=== PATIENT | female | born 1975 | race Caucasian/White ===

== ENCOUNTER 2018-09-06 12:12 | Outpatient (REF) | payer SELFPAY ==
[2018-09-06 18:39] LABS: TSH (W/Ref FT4) 1.59 uIU/mL (0.358-3.74)
== END 2018-09-06 12:32 ==
LOC: NCHCN 12:12
PROVIDERS: PCP Nurse Practitioner; Visit Provider Nurse Practitioner
DX: E03.9 Hypothyroidism, unspecified (principal)
CPT/HCPCS: 84443

== ENCOUNTER 2018-11-23 12:58 | Emergency (ER) | payer OTHER, SELFPAY ==
--- NOTE | 2018-11-23 13:08 | NUR.NOTE ---
pt states that at approximately 0900 pt leaned against a porch and and gor a large: splinter over her left hip. PT went to see DR griffin who attempted to remove the splinter but was unable. she recommended PT get a gucal consult for removal. PT was told she would have to wait more than a week for consult so PT came to ER to have it removed now as she was concerned for infection if she had to wait a week
[2018-11-23 13:11] VITALS: BP 130/76; PULSE 82; RESP 16; TEMP 36.6; O2SAT 96
[2018-11-23 14:03] VITALS: BP 130/76; PULSE 82; RESP 16; TEMP 36.6; O2SAT 96
--- NOTE | 2018-11-23 14:12 | ED.GENADUL_ITS ---
Discharge Plan Disposition Patient Disposition: HOME Discharge Details Chief Complaint: Laceration Clinical Impression: Puncture wound Primary Care Provider: Yuki Servin ED Provider: Santiago Goodwin Home Meds and New Rx's Prescriptions: No Action albuterol sulfate [ProAir HFA] 8.5 GM HFA aerosol inhaler 1 - 2 puff Inhalation Q4H PRN RF: 0 ascorbic acid (vitamin C) 1,000 MG tablet,chewable 1,000 mg PO DAILY RF: 0 cholecalciferol (vitamin D3) 1,000 UNIT capsule 1,000 unit PO DAILY RF: 0 levothyroxine 100 MCG tablet 100 mcg PO DAILY RF: 0 esomeprazole magnesium [Nexium] 40 MG capsule,delayed release(DR/EC) 40 mg PO DAILY RF: 0 epinephrine [EpiPen 2-Dayo] 0.3 MG/0.3 ML auto-injector 0.3 mg IJ PRN Qty: 1 RF: 1 Medical Marijuania PRNRF: 0 ferrous sulfate 325 MG tablet 325 mg PO DAILY RF: 0 hydrocodone-acetaminophen 1 TAB tablet 1 tab PO Q6H PRN PRNQty: 10 RF: 0 Discharge Instructions Instructions: Puncture Wound (ED) Additional Instructions: 1. Drink plenty of fluids. 2. Continue all medications as prescribed. 3. Acetaminophen 1000mg every 4 hours (up to 5 time a day) and/or ibuprofen 600mg every 6 hours as needed for fever or pain. 4. Sutures out in 7-10 days. Frequent warm water soaks. Return for worsening redness, discharge, swelling. Return to the Emergency Department (ED) if your condition worsens, does not improve as expected, or for ANY other concerns. Specifically, return if you have new or uncontrolled pain, worsening fever, difficulty breathing, vomiting, or are unable to drink fluids. Medical Decision Making 43-year-old who presents with a possible foreign body in her left lateral gluteal region. Referred here after previous attempt at incision and drainage. right denies other significant injury. Exam significant for a small punctate incision in the left lateral gluteal region with a small palpable nodule immediately adjacent posteriorly. Foreign body not visible by bedside ultrasound. 3 cm incision made with scalpel after using lidocaine with epi for local anesthesia. Unable to visualize or palpate any foreign body by exploration with a forceps. Wound had been cleaned prior to incision and therefore was amenable for primary closure and wound edges were approximated with 3-0 nylon suture. Discharged with plan for frequent warm compresses, sutures out in 7-10 days, and return for any evidence of worsening infective process or persistent foreign body. Pt evaluated immediately prior to discharge with improved symptoms, normal vital signs, and tolerating PO. The patient feels appropriate for discharge home. Discussed clinical/diagnostic findings. Discharged with a clear plan for outpatient follow up. Given usual and customary return instructions prior to discharge. Medical Records Medical records reviewed: Yes I reviewed the patient's medical records. HPI 43-year-old with a history of chronic back pain, hypothyroidism, asthma, GERD, and macrocytic anemia. Presents for evaluation of a possible foreign body to her left gluteal region. Nika was at work when she inadvertently grazed an object with a sensation of a splinter into her left gluteal region. She was evaluated prior to presentation here by her PCP who attempted to remove the foreign body without success. She has a sensation of persistent local discomfort and a small lump immediately adjacent to the previous incision site. She denies other significant injury. General Date/Time Provider Initiated Documentation: 11/23/18 13:17 . Related Data Home Medications Medication Instructions Recorded Confirmed albuterol sulfate [Proair Hfa] 1 - 2 puff INHALATION Q4H PRN 10/15/13 11/23/18 inhaler ascorbic acid (vitamin C) 1,000 mg PO DAILY tab.chew 10/15/13 11/23/18 cholecalciferol (vitamin D3) 1,000 unit PO DAILY 10/15/13 11/23/18 epinephrine [Epipen 2-Dayo] 0.3 mg IJ PRN #1 unit 04/24/14 11/23/18 esomeprazole magnesium [Nexium] 40 mg PO DAILY 04/24/14 11/23/18 Medical Marijuania PRN 04/13/16 06/14/18 levothyroxine 100 mcg PO DAILY tab-cap 09/22/16 11/23/18 ferrous sulfate 325 mg PO DAILY 09/30/16 11/23/18 hydrocodone-acetaminophen 1 tab PO Q6H PRN PRN #10 tab 10/05/16 11/23/18 Previous Rx's Medication Instructions Recorded epinephrine [Epipen 2-Dayo] 0.3 mg IJ PRN #1 unit 04/24/14 hydrocodone-acetaminophen 1 tab PO Q6H PRN PRN #10 tab 10/05/16 Allergies Allergy/AdvReac Type Severity Reaction Status Date / Time aspirin Allergy Severe Anaphylaxsi Unverified 11/23/18 13:13 s venom-honey bee Allergy Anaphylaxsi Unverified 11/23/18 13:13 s oxycodone AdvReac Severe Nausea & Unverified 11/23/18 13:13 vomiting General Stated Complaint: Laceration GITA: 3 Review of Systems Review of Systems All systems reviewed & are unremarkable except as noted in HPI and below Integumentary/Breasts Comments: Foreign body sensation to left gluteal region laterally. [facility] Medical History Chronic pain (Chronic) Hypothyroidism (Chronic) Chronic low back pain (Acute) Asthma GERD (gastroesophageal reflux disease) CTS (carpal tunnel syndrome) (Acute) Iron deficiency anemia (Acute) Irregular menses Microcytic anemia Sacroiliac joint dysfunction Surgical History EGD - IV Sedation EGD - MAC (04/13/16) Ligation of fallopian tube (~1999) Tonsillectomy and adenoidectomy (~1986) Social History Smoking/Tobacco Use Status: Former Tobacco Use Alcohol Intake: current Alcohol Intake frequency: holidays/special occasions only Drug use: Rarely Substance use type: other Details: Medical Marijuana Household members: spouse Number of Children: 3 number of grandchildren: 1 current occupation: [employer], [employer] What type of physical activity do you participate in: walking and regular exercise Duration: 15-30 minutes/day Frequency: 5-6 times per week Seatbelt use: always Drive intox or ride w/intox 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 Neuro General: alert, awake, gait normal, tone normal and moves all extremities Psych Appearance: grossly normal Mental Status: mental status grossly normal Affect: normal affect Course Vital Signs Temperature 97.9 F 11/23/18 13:11 Pulse 82 11/23/18 13:11 Respiratory Rate 16 11/23/18 13:11 Blood Pressure 130/76 11/23/18 13:11 Pulse Oximetry 96 11/23/18 13:11 Temperature 97.9 F 11/23/18 13:11 Temperature Source Skin 11/23/18 13:11 Pulse 82 11/23/18 13:11 Respiratory Rate 16 11/23/18 13:11 Respiratory Effort 11/23/18 13:14 Blood Pressure 130/76 11/23/18 13:11 Blood Pressure Position Supine 11/23/18 13:11 Pulse Oximetry 96 11/23/18 13:11 Oxygen Delivery Method Room Air 11/23/18 13:11 Oxygen Flow Rate 0 11/23/18 13:11 Pain Level 3 11/23/18 13:11 Procedures Foreign Body Removal Time Out Performed: yes Site: left Description of foreign body: other (Subjective wooden splinter) Sedation/Analgesia: none Technique: other (Skin incised with a scalpel and explored with a forceps) Confirmed by:: other (Foreign body not visualized or appreciated by palpation.) Complications: none (Discussed primary versus secondary closure. Wound edges approximated with 2 3-0 nylon simple interrupted sutures) Post-procedure exam: awake, alert and normal BP
== END 2018-11-23 14:10 | disposition home or self-care (01) ==
PROVIDERS: Emergency Provider Emergency Medicine; PCP Nurse Practitioner
DX: S70.252A Superficial foreign body, left hip, initial encounter (principal); X58.XXXA Exposure to other specified factors, initial encounter
CPT/HCPCS: 10120

== ENCOUNTER 2018-11-30 09:23 | Emergency (ER) | payer OTHER, SELFPAY ==
[2018-11-30 09:26] VITALS: BP 124/52; PULSE 78; RESP 14; TEMP 36.5; O2SAT 99
--- NOTE | 2018-11-30 09:26 | W.ED.GENAD ---
Discharge Plan Disposition Patient Disposition: HOME Condition: Stable Discharge Details Clinical Impression: Visit for suture removal Primary Care Provider: Yuki Servin ED Provider: Phil Malcolm Home Meds and New Rx's Prescriptions: No Action albuterol sulfate [ProAir HFA] 8.5 GM HFA aerosol inhaler 1 - 2 puff Inhalation Q4H PRN RF: 0 ascorbic acid (vitamin C) 1,000 MG tablet,chewable 1,000 mg PO DAILY RF: 0 cholecalciferol (vitamin D3) 1,000 UNIT capsule 1,000 unit PO DAILY RF: 0 levothyroxine 100 MCG tablet 100 mcg PO DAILY RF: 0 esomeprazole magnesium [Nexium] 40 MG capsule,delayed release(DR/EC) 40 mg PO DAILY RF: 0 epinephrine [EpiPen 2-Dayo] 0.3 MG/0.3 ML auto-injector 0.3 mg IJ PRN Qty: 1 RF: 1 Medical Marijuania PRNRF: 0 ferrous sulfate 325 MG tablet 325 mg PO DAILY RF: 0 hydrocodone-acetaminophen 1 TAB tablet 1 tab PO Q6H PRN PRNQty: 10 RF: 0 Discharge Instructions Instructions: Stitches Removal (ED) Medical Decision Making Had 2 sutures placed 7 days ago on buttocks, here for removal. No significant warmth, erythema or discharge, no evidence of infection and is well healed. nursing will remove sutures, return precautions given Differential Diagnosis suture removal HPI General Mode of arrival: ambulatory. Date/Time Provider Initiated Documentation: 11/30/18 09:25. Limitations to Documentation: no limitations. Information obtained by: patient. History of Present Illness 43 year old F presents to the emergency department with the chief complaint of suture removal, and is localized to the buttocks. Patient reports no radiation. Patient started experiencing this day(s) (7) and it has been constant. No relieving factors improve symptom(s), No exacerbating factors reported . Related Data Home Medications Medication Instructions Recorded Confirmed albuterol sulfate [Proair Hfa] 1 - 2 puff INHALATION Q4H PRN 10/15/13 11/23/18 inhaler ascorbic acid (vitamin C) 1,000 mg PO DAILY tab.chew 10/15/13 11/23/18 cholecalciferol (vitamin D3) 1,000 unit PO DAILY 10/15/13 11/23/18 epinephrine [Epipen 2-Dayo] 0.3 mg IJ PRN #1 unit 04/24/14 11/23/18 esomeprazole magnesium [Nexium] 40 mg PO DAILY 04/24/14 11/23/18 Medical Marijuania PRN 04/13/16 06/14/18 levothyroxine 100 mcg PO DAILY tab-cap 09/22/16 11/23/18 ferrous sulfate 325 mg PO DAILY 09/30/16 11/23/18 hydrocodone-acetaminophen 1 tab PO Q6H PRN PRN #10 tab 10/05/16 11/23/18 Previous Rx's Medication Instructions Recorded epinephrine [Epipen 2-Dayo] 0.3 mg IJ PRN #1 unit 04/24/14 hydrocodone-acetaminophen 1 tab PO Q6H PRN PRN #10 tab 10/05/16 Allergies Allergy/AdvReac Type Severity Reaction Status Date / Time aspirin Allergy Severe Anaphylaxsi Unverified 11/23/18 13:13 s venom-honey bee Allergy Anaphylaxsi Unverified 11/23/18 13:13 s oxycodone AdvReac Severe Nausea & Unverified 11/23/18 13:13 vomiting General GITA: 3 Review of Systems Review of Systems All systems reviewed & are unremarkable except as noted in HPI and below Constitutional Denies chills and Denies fever(s) Eyes Denies loss of vision ENT Denies change in voice Cardiovascular Denies chest pain and Denies dyspnea Respiratory Denies cough and Denies dyspnea Gastrointestinal Denies abdominal pain, Denies nausea and Denies vomiting Neurologic Denies loss of vision [facility] Medical History Chronic pain (Chronic) Hypothyroidism (Chronic) Chronic low back pain (Acute) Asthma GERD (gastroesophageal reflux disease) CTS (carpal tunnel syndrome) (Acute) Iron deficiency anemia (Acute) Irregular menses Microcytic anemia Sacroiliac joint dysfunction Surgical History EGD - IV Sedation EGD - MAC (04/13/16) Ligation of fallopian tube (~1999) Tonsillectomy and adenoidectomy (~1986) Social History Smoking/Tobacco Use Status: Former Tobacco Use Alcohol Intake: current Alcohol Intake frequency: holidays/special occasions only Drug use: Rarely Substance use type: other Details: Medical Marijuana Household members: spouse Number of Children: 3 number of grandchildren: 1 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[employer], [employer] What type of physical activity do you participate in: walking and regular exercise Duration: 15-30 minutes/day Frequency: 5-6 times per week Seatbelt use: always Drive intox or ride w/intox 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: No Working smoke detector in home: Yes Fire extinguisher in home: Yes Carbon monox detector in home: Yes Do you feel safe at home: Yes Do you feel safe in your relationship?: Yes Exam Const General: no acute distress Orientation: alert HENMT Head: normal to inspection Ears: external ears normal General nose exam: external nose normal Mouth: moist mucous membranes Eyes General: appearance normal, both eyes and all related structures Neck Neck: normal visual inspection Resp Effort & Inspection: normal respiratory effort and able to speak in complete sentences Cardio Rate: regular rate Skin General skin exam: turgor normal Neuro General: alert and oriented x3 Extrem General: normal to inspection Psych Mental Status: mental status grossly normal
--- NOTE | 2018-11-30 09:31 | ED.GENADUL_ITS ---
Discharge Plan Disposition Patient Disposition: HOME Condition: Stable Discharge Details Clinical Impression: Visit for suture removal Primary Care Provider: Yuki Servin ED Provider: Phil Malcolm Home Meds and New Rx's Prescriptions: No Action albuterol sulfate [ProAir HFA] 8.5 GM HFA aerosol inhaler 1 - 2 puff Inhalation Q4H PRN RF: 0 ascorbic acid (vitamin C) 1,000 MG tablet,chewable 1,000 mg PO DAILY RF: 0 cholecalciferol (vitamin D3) 1,000 UNIT capsule 1,000 unit PO DAILY RF: 0 levothyroxine 100 MCG tablet 100 mcg PO DAILY RF: 0 esomeprazole magnesium [Nexium] 40 MG capsule,delayed release(DR/EC) 40 mg PO DAILY RF: 0 epinephrine [EpiPen 2-Dayo] 0.3 MG/0.3 ML auto-injector 0.3 mg IJ PRN Qty: 1 RF: 1 Medical Marijuania PRNRF: 0 ferrous sulfate 325 MG tablet 325 mg PO DAILY RF: 0 hydrocodone-acetaminophen 1 TAB tablet 1 tab PO Q6H PRN PRNQty: 10 RF: 0 Discharge Instructions Instructions: Stitches Removal (ED) Medical Decision Making Had 2 sutures placed 7 days ago on buttocks, here for removal. No significant warmth, erythema or discharge, no evidence of infection and is well healed. nursing will remove sutures, return precautions given Differential Diagnosis suture removal HPI General Mode of arrival: ambulatory . Date/Time Provider Initiated Documentation: 11/30/18 09:25 . Limitations to Documentation: no limitations . Information obtained by: patient . History of Present Illness 43 year old F presents to the emergency department with the chief complaint of suture removal, and is localized to the buttocks. Patient reports no radiation. Patient started experiencing this day(s) (7) and it has been constant. No relieving factors improve symptom(s), No exacerbating factors reported . Related Data Home Medications Medication Instructions Recorded Confirmed albuterol sulfate [Proair Hfa] 1 - 2 puff INHALATION Q4H PRN 10/15/13 11/23/18 inhaler ascorbic acid (vitamin C) 1,000 mg PO DAILY tab.chew 10/15/13 11/23/18 cholecalciferol (vitamin D3) 1,000 unit PO DAILY 10/15/13 11/23/18 epinephrine [Epipen 2-Dayo] 0.3 mg IJ PRN #1 unit 04/24/14 11/23/18 esomeprazole magnesium [Nexium] 40 mg PO DAILY 04/24/14 11/23/18 Medical Marijuania PRN 04/13/16 06/14/18 levothyroxine 100 mcg PO DAILY tab-cap 09/22/16 11/23/18 ferrous sulfate 325 mg PO DAILY 09/30/16 11/23/18 hydrocodone-acetaminophen 1 tab PO Q6H PRN PRN #10 tab 10/05/16 11/23/18 Previous Rx's Medication Instructions Recorded epinephrine [Epipen 2-Dayo] 0.3 mg IJ PRN #1 unit 04/24/14 hydrocodone-acetaminophen 1 tab PO Q6H PRN PRN #10 tab 10/05/16 Allergies Allergy/AdvReac Type Severity Reaction Status Date / Time aspirin Allergy Severe Anaphylaxsi Unverified 11/23/18 13:13 s venom-honey bee Allergy Anaphylaxsi Unverified 11/23/18 13:13 s oxycodone AdvReac Severe Nausea & Unverified 11/23/18 13:13 vomiting General GITA: 3 Review of Systems Review of Systems All systems reviewed & are unremarkable except as noted in HPI and below Constitutional Denies chills and Denies fever(s) Eyes Denies loss of vision ENT Denies change in voice Cardiovascular Denies chest pain and Denies dyspnea Respiratory Denies cough and Denies dyspnea Gastrointestinal Denies abdominal pain, Denies nausea and Denies vomiting Neurologic Denies loss of vision [facility] Medical History Chronic pain (Chronic) Hypothyroidism (Chronic) Chronic low back pain (Acute) Asthma GERD (gastroesophageal reflux disease) CTS (carpal tunnel syndrome) (Acute) Iron deficiency anemia (Acute) Irregular menses Microcytic anemia Sacroiliac joint dysfunction Surgical History EGD - IV Sedation EGD - MAC (04/13/16) Ligation of fallopian tube (~1999) Tonsillectomy and adenoidectomy (~1986) Social History Smoking/Tobacco Use Status: Former Tobacco Use Alcohol Intake: current Alcohol Intake frequency: holidays/special occasions only Drug use: Rarely Substance use type: other Details: Medical Marijuana Household members: spouse Number of Children: 3 number of grandchildren: 1 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, [employer] What type of physical activity do you participate in: walking and regular exercise Duration: 15-30 minutes/day Frequency: 5-6 times per week Seatbelt use: always Drive intox or ride w/intox 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: No Working smoke detector in home: Yes Fire extinguisher in home: Yes Carbon monox detector in home: Yes Do you feel safe at home: Yes Do you feel safe in your relationship?: Yes Exam Const General: no acute distress Orientation: alert HENMT Head: normal to inspection Ears: external ears normal General nose exam: external nose normal Mouth: moist mucous membranes Eyes General: appearance normal, both eyes and all related structures Neck Neck: normal visual inspection Resp Effort & Inspection: normal respiratory effort and able to speak in complete sentences Cardio Rate: regular rate Skin General skin exam: turgor normal Neuro General: alert and oriented x3 Extrem General: normal to inspection Psych Mental Status: mental status grossly normal
== END 2018-11-30 09:35 | disposition home or self-care (01) ==
LOC: ER 09:49
PROVIDERS: Emergency Provider Emergency Medicine; PCP Nurse Practitioner
DX: S31.812D Laceration with foreign body of right buttock, subsequent encounter (principal); X58.XXXD Exposure to other specified factors, subsequent encounter; Z48.02 Encounter for removal of sutures

== ENCOUNTER 2019-03-04 10:29 | Outpatient (REF) | payer OTHER, SELFPAY ==
--- NOTE | 2019-03-04 09:50 | PAPFT_PTH ---
PATIENT: Nika Villarreal LOC: [facility] U#:[id number] AGE/SX: 43/F ROOM: RE03/04/[address]: Viviana Osuna : 1975 BED: DIS: 03/04/2019 SPEC #: [id number] RECD: 03/04/19 11:24 STATUS: MAIKOL REAleksandr #: [id number] CHRISTOPHER: 03/04/19 09:[address]: Viviana Osuna DEPT: [facility] Cytology RECD BY: Fozia Sevilla ENTERED: 03/04/19 11:25 SP TYPE: PAPFT OTHR DR: Yuki Servin Tissues: 1 - CX/ENDOCX FOR PAP SMEARS Procedures: PAP THIN PREP/UVM Screening HPV DNA PROBE Comments: [id number]
== END 2019-03-04 10:49 ==
LOC: LBN 10:29
PROVIDERS: PCP Nurse Practitioner; Visit Provider Obstetrics & Gynecology Gynecology
DX: Z12.4 Encounter for screening for malignant neoplasm of cervix (principal); Z11.51 Encounter for screening for human papillomavirus (HPV)
CPT/HCPCS: 88142; 87624

== ENCOUNTER 2020-04-27 12:28 | Outpatient (REF) | payer OTHER, SELFPAY ==
[2020-04-27 18:52] LABS: HCT 37.6 % (36.0-46.0); HGB 12.2 g/dL (11.2-15.7); MCH 29.5 pg (27.0-33.0); MCHC 32.4 % (32.0-36.0); MPV 11.3 fL (8.0-11.0); Platelet Count 288 10^3/uL (130-400); RBC 4.13 10^6/uL (3.93-5.22); RDW-SD 43.5 fL; WBC 6.56 10^3/uL (4.4-10.8)
[2020-04-27 20:01] LABS: ALT 37 U/L (14-59); AST 29 U/L (15-37); Albumin 3.6 g/dL (3.4-5.0); Alkaline Phosphatase 56 U/L (46-116); Anion Gap 11.1 mmol/L (3-11); BUN 11 mg/dL (7-18); Bilirubin, Total 0.4 mg/dL (0.2-1.0); CO2 25.9 mmol/L (21.0-32.0); CREATININE 0.73 mg/dL (0.55-1.02); Calcium 8.9 mg/dL (8.5-10.1); Chloride 104 mmol/L (98-107); Glucose 100 mg/dL (74-106); Sodium 141 mmol/L (136-145); TSH (W/Ref FT4) 0.75 uIU/mL (0.36-3.74); Total Protein 6.6 g/dL (6.4-8.2)
== END 2020-04-27 12:48 ==
LOC: NCHCN 12:28
PROVIDERS: PCP Nurse Practitioner; Visit Provider Nurse Practitioner
DX: E03.9 Hypothyroidism, unspecified (principal); E66.9 Obesity, unspecified; M54.5 Low back pain; Z86.2 Personal history of diseases of the blood and blood-forming organs and certain disorders involving the immune mechanism
CPT/HCPCS: 80053; 85027; 84443

== ENCOUNTER 2020-11-02 10:31 | Outpatient (CLI) | payer OTHER, SELFPAY ==
--- NOTE | 2020-11-02 09:45 | DI.RAD_ITS ---
EXAM: XR HAND LT COMPLETE CLINICAL HISTORY: left wrist pain. TECHNIQUE: 2D digital imaging was performed. COMPARISON: No exams were available for comparison FINDINGS: There are 3 calcific densities on in the soft tissues on the palmar side at the level of the head of the 2nd metacarpal. No evidence of fracture. No other abnormal soft tissue densities noted. No ero sions. IMPRESSION: DATA REPOSITORY: RADIATION DOSE DELIVERED:
== END 2020-11-02 10:32 | disposition home or self-care (01) ==
LOC: DIORS 10:31
PROVIDERS: PCP Nurse Practitioner; Referring Provider Nurse Practitioner; Visit Provider Physician Assistant
DX: M25.532 Pain in left wrist (principal)
CPT/HCPCS: 73130

== ENCOUNTER 2020-11-16 04:07 | Outpatient (CLI) | payer OTHER, SELFPAY ==
[2020-11-16 09:26] LABS: Source Nasal/Nares
[2020-11-16 12:13] LABS: COVID-19 PCR Negative (Negative)
== END 2020-11-16 04:08 | disposition home or self-care (01) ==
LOC: LBO 04:07
PROVIDERS: PCP Nurse Practitioner; Visit Provider Student in an Organized Health Care Education/Training Program
DX: Z20.822 Contact with and (suspected) exposure to COVID-19 (principal); Z01.818 Encounter for other preprocedural examination
CPT/HCPCS: 87635

== ENCOUNTER 2020-11-18 06:05 | Day surgery (SDC) | payer OTHER, SELFPAY ==
[2020-11-18 06:19] VITALS: BP 121/62; PULSE 80; RESP 18; TEMP 36.5; O2SAT 97
[2020-11-18] MEDS: Lactated Ringers 1,000 ML 80 ML IV (06:54)
--- NOTE | 2020-11-18 07:23 | W.PM.DSUDISC ---
Discharge Plan Disposition Patient Disposition: HOME Condition: Good Discharge Details Reason For Visit: Left ECTR Attending Provider: Jorge Guerrero Primary Care Provider: Yuki Servin Home Meds and New Rx's Prescriptions: New hydrocodone-acetaminophen 5-325 mg tablet 1 tab PO Q6H PRN (Reason: pain) Qty: 6 RF: 0 acetaminophen 500 mg capsule 1,000 mg PO Q8H PRN PRNQty: 90 RF: 0 Continued vitamin B complex Capsule 1 cap PO DAILY RF: 0 albuterol sulfate [ProAir HFA] 8.5 GM HFA aerosol inhaler 1 - 2 puff Inhalation Q4H PRN RF: 0 ascorbic acid (vitamin C) 1,000 MG tablet,chewable 1,000 mg PO DAILY RF: 0 cholecalciferol (vitamin D3) 1,000 UNIT capsule 1,000 unit PO DAILY RF: 0 levothyroxine 100 mcg tablet 125 mcg PO DAILY RF: 0 esomeprazole magnesium [Nexium] 40 MG capsule,delayed release(DR/EC) 40 mg PO DAILY RF: 0 epinephrine [EpiPen 2-Dayo] 0.3 MG/0.3 ML auto-injector 0.3 mg IJ PRN Qty: 1 RF: 1 Medical Marijuania PRNRF: 0 ferrous sulfate 325 MG tablet 325 mg PO DAILY RF: 0 calcium carb-mag ox-zinc gluc 333-133-5 mg Tablet PO DAILY RF: 0 Discontinued hydrocodone-acetaminophen 1 TAB tablet 1 tab PO Q6H PRN PRNQty: 10 RF: 0 Discharge Instructions Stand Alone Forms: Yolanda Garcia Tunnel Release Referrals: Jorge Guerrero MD [ [facility] ST[facility]FF PHYSICIAN] - Activity:: Activity as Tolerated Remove Dressings/Wound Care:: 48 hours Shower/Bathe:: 48 hours Discharge Orders Discharge Orders: Discharge Order (Routine); Ordered 11/18/20 Ordered By: Jarrell Rebolledo DS: Diagnosis Discharge Diagnosis (1) Carpal tunnel syndrome, left: Status: Acute
--- NOTE | 2020-11-18 07:26 | W.PREOPHP ---
Date of service: 11/18/20 Time of Service: 07:26 Assessment and Plan Assessment and plan (1) Carpal tunnel syndrome, left: Status: Acute Assessment and plan: Nika is a 45-year-old has carpal tunnel syndrome of the left side proven by nerve conduction studies. We previously discussed treatment options in the office and she elected to proceed with carpal tunnel release. I reviewed the risk of the procedure to include bleeding, infection, pain, stiffness, continued numbness, incomplete release, need for repeat procedures. Despite these risks, she elected to proceed. History of Present Illness History of Present Illness Chief Complaint: Left Hand Numbness and Pain Narrative: Nika is a 45-year-old who I saw previously in the office for symptoms of carpal tunnel syndrome. At the time of the office visit she decided proceed with carpal tunnel release. She is here for that procedure today. She denies chest pain or shortness of breath. She denies any other changes to her health. She is COVID-19 negative. Review of Systems All systems reviewed & are unremarkable except as noted in HPI and below PFSH Medical History Asthma Chronic low back pain Chronic pain CTS (carpal tunnel syndrome) GERD (gastroesophageal reflux disease) Hypothyroidism Iron deficiency anemia Irregular menses Microcytic anemia 09/2013 Hct 28. Pt was taking NSAIDs for SI joint pain. EGD done- nl findings. Anemia resolved with stopping NSAIDs and supplemental iron. Sacroiliac joint dysfunction Small intestinal bacterial overgrowth Surgical History Carpal tunnel syndrome, left S/P ECTR: 11/18/2020 EGD - IV Sedation 10/21/13 for eval of GI pain and microcytic anemia. Nl bx. EGD - MAC (04/13/16) History of back surgery herniated disk removed from lower back. 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 Female Reproductive History Menstrual control method: permanent sterilization Meds Home Medications and Allergies Allergies Allergy/AdvReac Type Severity Reaction Status Date / Time aspirin Allergy Severe Anaphylaxsi Unverified 11/18/20 06:28 s venom-honey bee Allergy Anaphylaxsi Unverified 11/18/20 06:28 s oxycodone AdvReac Severe Nausea & Unverified 11/18/20 06:28 vomiting Home Medications Medication Instructions Recorded Confirmed Type albuterol sulfate [ProAir HFA] 1 - 2 puff INHALATION Q4H PRN 10/15/13 11/18/20 History inhaler ascorbic acid (vitamin C) 1,000 mg PO DAILY tab.chew 10/15/13 11/18/20 History cholecalciferol (vitamin D3) 1,000 unit PO DAILY 10/15/13 11/18/20 History epinephrine [EpiPen 2-Dayo] 0.3 mg IJ PRN #1 unit 04/24/14 11/18/20 Rx esomeprazole magnesium [Nexium] 40 mg PO DAILY 04/24/14 11/18/20 History Medical Marijuania PRN 04/13/16 03/04/19 History ferrous sulfate 325 mg PO DAILY 09/30/16 03/04/19 History levothyroxine 100 mcg tablet 125 mcg PO DAILY tab-cap 03/04/19 11/18/20 History vitamin B complex 1 cap PO DAILY 11/02/20 11/18/20 History acetaminophen 1,000 mg PO Q8H PRN PRN #90 cap 11/18/20 Rx calcium carb-mag ox-zinc gluc tab PO DAILY 11/18/20 History hydrocodone-acetaminophen 1 tab PO Q6H PRN #6 tab 11/18/20 Rx Exam Const General: cooperative, healthy appearing, comfortable and no acute distress Nutritional Appearance: average body habitus Orientation: alert, awake and oriented x3 Resp Effort & Inspection: normal respiratory effort Auscultation: clear to auscultation bilaterally Cardio Rate: regular rate Rhythm: regular rhythm Results Last Vital Signs Temp 36.5 C 11/18/20 06:19 Pulse 80 11/18/20 06:19 Resp 18 11/18/20 06:19 BP 121/62 11/18/20 06:19 Pulse Ox 97 11/18/20 06:19
[2020-11-18] MEDS: ceFAZolin 2 GM/50 ML BAG IVPB (07:37)
[2020-11-18] MEDS: Sodium Bicarbonate 50 MEQ/50 ML VIAL (07:57)
--- NOTE | 2020-11-18 08:00 | ROE_ITS ---
Date of service: 11/18/20 Time of Service: 08:00 Operative Note Operative Note DATE OF PROCEDURE: 11/18/20 PRE-OP DIAGNOSIS: Left Carpal Tunnel Syndrome POST-OP DIAGNOSIS: same PROCEDURE: Left Endoscopic Carpal Tunnel Release SURGEON: Jorge Guerrero Refer to Anesthesia Record ESTIMATED BLOOD LOSS: 0 PATHOLOGY: none sent TOURNIQUET TIME: 3 COMPLICATIONS: None Patient was transported to: same day Patient's condition: stable Indications: I have seen Nika in clinic for symptoms of carpal tunnel syndrome. The numbness, tingling, and pain limited function. Clinical exam findings with nerve conduction tests confirmed the diagnosis of carpal tunnel syndrome. Nonoperative measures such as bracing, time, activity modifications had been tried but disability and pain persisted. I discussed carpal tunnel release with the patient. I reviewed the risks of the procedure to include, but not limited to, bleeding, infection, pain, stiffness, incomplete release, damage to nerves or vessels, persistent numbness, recurrence. Despite these risks, the patient elected to proceed. Findings: There was tightened carpal tunnel. This was dilated and released successfully with the endoscopic with increased space within the tunnel. The antebrachial fascia was released proximally freeing the median nerve at the wrist. Procedure Description: Nika was greeted in the preoperative holding area where the correct side was identified and marked. The consent was reviewed with the patient and signed. The history and physical was updated. All questions were answered. She was taken back to the operating room. The patient was placed into the garsia pine position on the operating room table with the left arm on an arm board. A nonsterile tourniquet was placed high onto the arm. All bony prominences were well padded. Prophylactic antibiotics in the form of Cefazolin were administered. The left arm was then prepped with Chloraprep and draped in a standard fashion with stockinette and extremity drape. A timeout to confirm correct identity, side and site, procedure, allergies, anesthesia, and medical concerns was performed. The surgical site was marked in the volar wrist creases in line with the radial border of the fourth ray. This area was anesthetized with approximately 6cc of 1% Lidocaine. The limb was then exsanguinated with an Esmarch. The skin was incised with a 15 blade, approximately 1cm. The skin only was cut and the d eeper tissue was dissected bluntly with a tenotomy scissor, avoiding passing nerve and venous structures. The fascia was penetrated and opened bluntly. A two-prong skin hook was placed under this proximal fascial edge. A series of hamate finders were used to identify and dilate the carpal tunnel. Synovial elevator was used to free synovial attachments to the underside of the transverse carpal ligament. My thumb was kept in the palm to kostas the distal extent of the carpal tunnel and correctly position the hand. The Microaire endoscope was inserted without difficulty and without resistance. Excellent visualization showed horizontally running fibers of the transverse carpal ligament (TCL). The distal extent of the TCL was visualized and the end of the scope palpated with the thumb. The blade was elevated and withdrawn from distal to proximal. The TCL was split into two flaps. The endoscope was reinserted to confirm complete release and any remnant ligament was incised. The scope was withdrawn and the proximal aspect of the carpal tunnel was grossly inspected and appeared release with the median nerve visible. The antebrachial fascia at the level of the wrist was then freed from the overlying skin and then the underlying median nerve with blunt dissection. This was transected longitudinally for about 3cm proximal to the wrist incision. The wound was then irrigated with easy flow of irrigant distally and proximally. The incision was closed with a single 4-0 Nylon suture. The wound was dressed with Xeroform, Gauze, Kerlix and Keanu. The tourniquet was deflated with the initial dressing and held with some pressure. Blood flow returned easily to all digits with capillary refill less than 2 seconds. The patient tolerated the procedure well and was returned to the Same Day Surgery area in a stable condition suffering no known complication.
[2020-11-18 08:36] VITALS: BP 114/67; PULSE 59; RESP 16; TEMP 36.7; O2SAT 97
== END 2020-11-18 09:15 | disposition home or self-care (01) ==
PROVIDERS: PCP Nurse Practitioner; Visit Provider Student in an Organized Health Care Education/Training Program
PROC: 01N54ZZ Release Median Nerve, Percutaneous Endoscopic Approach (ICD-10-PCS; CPT 29848; principal; 2020-11-18 07:30)
DX: G56.02 Carpal tunnel syndrome, left upper limb (principal)
CPT/HCPCS: 29848; 81025; NC; J0690; J2001

== ENCOUNTER 2020-11-27 03:39 | Outpatient (CLI) | payer OTHER, SELFPAY ==
--- NOTE | 2020-11-27 10:57 | DI.RAD_ITS ---
EXAM: XR SHOULDER LT COMPLETE 2+V CLINICAL HISTORY: LT SHOULDER PAIN, M25.512. TECHNIQUE: 2D digital imaging was performed. COMPARISON: No exams were available for comparison FINDINGS: BONES: No acute fracture is present. No bony destructive lesion is seen. JOINTS: No dislocation present. SOFT TISSUE: Normal. There is a calcification adjacent to the humeral head which may represent calcif ic tendinitis. IMPRESSION: Findings suggesting calcific tendinitis. DATA REPOSITORY: RADIATION DOSE DELIVERED:
== END 2020-11-27 03:59 ==
PROVIDERS: PCP Nurse Practitioner; Visit Provider Physician Assistant
DX: M25.512 Pain in left shoulder (principal); M75.32 Calcific tendinitis of left shoulder
CPT/HCPCS: 73030

== ENCOUNTER 2021-04-08 01:35 | Outpatient (CLI) | payer OTHER, SELFPAY ==
--- NOTE | 2021-04-08 07:00 | DI.MRI_ITS ---
Exam(s) MR UPPER JOINT LT WO EXAM: MR UPPER JOINT LT WO CLINICAL HISTORY: PAIN, SLAP TEAR LT SHOULDER, CALCIFIC TENDINITIS, S43.432A, M75.12 TECHNIQUE: Multiplanar multisequence MRI of the shoulder was performed. COMPARISON: CR XR SHOULDER LT COMPLETE 2+V from 11/27/2020 CR XR SHOULDER LT COMPLETE 2+V from 11/27/2020 FINDINGS: MARROW:There is no evidence of fracture, Hill-Sachs deformity, nor ominous osseous lesions. ROTATOR CUFF MECHANISM: AC JOINT/ACROMIUM: No degenerative changes in the AC joint. Undersurface of the acromion is flat. N o undersurface impinging hook at this level.. There is no evidence of os acromiale. Supraspinatus: There is thickening and significant signal abnormality in the supraspinatus tendon con sistent with tendinitis/tendinosis. There is also a 5 x 3 millimeter well-defined signal void at the posterior foot pad insertion immediately adjacent to the greater tuberosity, this corresponding to t he calcifications seen on the prior plain films of 11/27/2020. this is actually seen within the infra spinatus tendon. In addition to supraspinatus signal abnormality and thickening there is a small are a where signal abnormality appears to traverse most of the thickness and this has appearance of a sig nificant partial tear superimposed upon tendinitis/tendinosis. There is no atrophy of the supraspina tus muscle belly. There is some fluid in the subacromial-subdeltoid bursa. Infraspinatus: As above. The 5 x 3 millimeter calcific density is actually within the infraspinatus tendon immediately adjacent to the greater tuberosity. There does not appear to be prominent signal abnormality in the infraspinatus tendon. Teres Minor: Intact. No evidence of tear nor muscle atrophy. Subscapularis/anterior cuff: Intact. No abnormal signal at the level of the multipennate insertional fibers. No significant tear nor atrophy. BICEPS TENDON: Normally position in the intertubercular groove. No evidence of tear. Minimal increased fluid in the tendon sheath. LABRUM: No abnormal signal in the superior labrum posterior to the biceps insertion. Posterior labru m is somewhat difficult to assess because of motion artifact on the axial images. Anterior labrum ap pears somewhat deficient. Inferior labrum appears intact. There is no evidence of paralabral cyst. Inferior glenohumeral ligament appears intact. . GLENOHUMERAL JOINT: Minimal degenerative changes. No osteophytes. Small amount of increased joint f luid. No obvious loose intra-articular body. No degenerative subarticular cysts. No evidence of cap sular tear. The inferior glenohumeral ligament is intact. QUADRILATERAL SPACE: No evidence of mass in the region of the axillary nerve and dorsal circumflex hu meral vessels. Visualized triceps muscle at this level appears unremarkable. IMPRESSION: 1. Findings are consistent with tendinitis/tendinosis of the supraspinatus rotator cuff tendon with s uperimposed partial-thickness tearing. There is some fluid in the subacromial-subdeltoid bursa and t herefore there may be a component of full-thickness tear. There is a 5 x 3 millimeter oval calcifica tion adjacent to the greater tuberosity corresponding to what is seen on prior chest x-ray 11/27/2020 . This calcification is within the posterior insertion fibers of the infraspinatus. There is minima l tendinitis signal at this level. No tear of the infraspinatus. No atrophy of the supra and infras pinatus. 2. Biceps tendon is intact and nondisplaced. Evaluation of the labrum is somewhat difficult because of motion artifact on the axial images. No evidence of obvious SLAP tear. Some abnormal signal seen in the posterior labrum this may be exaggerated by the motion artifact. Anterior labrum appears sma ller than usual. No over prominence of the middle glenohumeral ligament to suggest a Orion variant. No evidence of paralabral cyst. 3. Small glenohumeral joint effusion. No loose intra-articular body no osteophytes. DATA REPOSITORY:
== END 2021-04-08 01:55 ==
PROVIDERS: PCP Nurse Practitioner; Visit Provider Student in an Organized Health Care Education/Training Program
DX: M75.22 Bicipital tendinitis, left shoulder (principal); M75.32 Calcific tendinitis of left shoulder; S43.432A Superior glenoid labrum lesion of left shoulder, initial encounter; M25.512 Pain in left shoulder; M25.412 Effusion, left shoulder
CPT/HCPCS: 73221

== ENCOUNTER 2021-05-17 22:28 | Outpatient (CLI) | payer MEDICAID, SELFPAY ==
--- NOTE | 2021-05-17 | DI.RAD_ITS ---
Exam(s) XR KNEE LT 3V AP,LAT,LONI EXAM: XR KNEE LT 3V AP,LAT,LONI CLINICAL HISTORY: CONTUSION OF LT KNEE, S80.02XA. TECHNIQUE: 2D digital imaging was performed. COMPARISON: No exams were available for comparison FINDINGS: BONES: No acute fracture is present. No bony destructive lesion is seen. JOINTS: The knee is normally aligned. No joint effusion is seen. Mild periarticular spurring. Mild n arrowing of the femoral tibial joint spaces. SOFT TISSUE: Normal. IMPRESSION: Degenerative changes. No acute abnormality. DATA REPOSITORY: RADIATION DOSE DELIVERED:
== END 2021-05-17 22:48 ==
PROVIDERS: PCP Nurse Practitioner; Visit Provider Family Medicine
DX: S80.02XA Contusion of left knee, initial encounter (principal); M17.12 Unilateral primary osteoarthritis, left knee
CPT/HCPCS: 73562

== ENCOUNTER 2021-07-13 09:38 | Outpatient (REF) | payer MEDICAID, SELFPAY ==
[2021-07-14 17:14] LABS: COVID-19 RT-PCR UVMMC Result Negative (Negative)
== END 2021-07-13 09:39 | disposition home or self-care (01) ==
LOC: NCHCN 09:38
PROVIDERS: PCP Nurse Practitioner; Visit Provider Nurse Practitioner
DX: Z20.822 Contact with and (suspected) exposure to COVID-19 (principal); R05.8 Other specified cough
CPT/HCPCS: U0003

== ENCOUNTER 2021-09-14 08:38 | Outpatient (CLI) | payer OTHER, SELFPAY ==
--- NOTE | 2021-09-14 08:30 | DI.RAD_ITS ---
Exam(s) XR HAND RT COMPLETE EXAM: XR HAND RT COMPLETE CLINICAL HISTORY: right wrist pain. TECHNIQUE: 2D digital imaging was performed of the right hand. Three images were obtained. AP, late ral and oblique views were obtained. COMPARISON: No exams were available for comparison FINDINGS: BONES: No acute fracture is present. No bony destructive lesion is seen. JOINTS: No dislocation present. There are mild degenerative changes of the hand with periarticular sp urring seen at the interphalangeal joints. SOFT TISSUE: Normal. IMPRESSION: Mild degenerative changes of the right hand. DATA REPOSITORY: RADIATION DOSE DELIVERED:
== END 2021-09-14 08:39 | disposition home or self-care (01) ==
LOC: DIORS 08:39
PROVIDERS: PCP Nurse Practitioner; Referring Provider Nurse Practitioner; Visit Provider Physician Assistant
DX: M25.531 Pain in right wrist (principal); M77.8 Other enthesopathies, not elsewhere classified
CPT/HCPCS: 73130

== ENCOUNTER 2021-12-15 17:03 | Emergency (ER) | payer MEDICAID, SELFPAY ==
[2021-12-15] VITALS (30 sets, daily range): BP systolic 100–134; BP diastolic 52–75; PULSE 54–96; RESP 18; TEMP 37.8–39.1; O2SAT 93–98
--- NOTE | 2021-12-15 17:21 | ED.GENADUL_ITS ---
Discharge Plan Disposition Patient Disposition: HOME Condition: Stable Discharge Details Clinical Impression: COVID Primary Care Provider: Yuki Servin ED Provider: Nathan Jaquez Home Meds and New Rx's Prescriptions: Continued vitamin B complex Capsule 1 cap PO DAILY 0RF albuterol sulfate [ProAir HFA] 8.5 GM HFA aerosol inhaler 1 - 2 puff Inhalation Q4H PRN 0RF ascorbic acid (vitamin C) 1,000 MG tablet,chewable 1,000 mg PO DAILY 0RF cholecalciferol (vitamin D3) 1,000 UNIT capsule 1,000 unit PO DAILY 0RF levothyroxine 100 mcg tablet 125 mcg PO DAILY 0RF esomeprazole magnesium [Nexium] 40 MG capsule,delayed release(DR/EC) 40 mg PO DAILY 0RF epinephrine [EpiPen 2-Dayo] 0.3 MG/0.3 ML auto-injector 0.3 mg IJ PRN Qty: 1 1RF Medical Marijuania PRN0RF Label Comments: 09/30/16 pt reports she has medical marijuania card. Pt reports she uses 3-4 times a day prn. jw hydrocodone-acetaminophen 5-325 mg tablet PO BID 0RF Label Comments: TAKE 1 TABLET BY MOUTH TWICE DAILY NEEDED FOR PAIN ferrous sulfate 325 MG tablet 325 mg PO DAILY 0RF calcium carb-mag ox-zinc gluc 333-133-5 mg Tablet PO DAILY 0RF Label Comments: started a Calcium, magnesium, zinc tablet.HE acetaminophen 500 mg capsule 1,000 mg PO Q8H PRN PRNQty: 90 0RF Discharge Instructions Instructions: COVID-19 (Coronavirus Disease 2019) (ED) Additional Instructions: Paxlovid as directed. Rest. Plenty of fluids with electrolytes to avoid dehyd ration. [id number] Tylenol and Motrin as well as other medications for symptomatic control. As we discussed, the recommendation is that you take only half your dose of hydrocodone as this does interact with Paxlovid. Please watch for new or worsening symptoms and return to the ER for any concerns. Lastly, contact your primary care provider tomorrow to discuss your ER visit, ongoing symptoms, need for outpatient reevaluation. Medical Decision Making This is a 46-year-old female, past medical history of asthma, non cigarette smoker but does use medical marijuana, thyroid disease, fully vaccinated, presenting to the ER for evaluation of a fever, body aches, simply not feeling well that began yesterday. Denies any sick contacts. She took Tylenol but no ibuprofen. Clinically she appears well, nontoxic but is febrile. Clinically I feel as though the most likely diagnosis is flu. Lungs are clear to auscultation O2 sats are 96% on room air, extremely low suspicion for pneumonia, I do not believe that chest x-ray is indicated. Plan is to orally hydrate, give a full dose of ibuprofen, obtain a flu, COVID, RSV swab. COVID positive. Patient remains hemodynamically stable. Given her history of asthma and the inclusion criteria, patient would be a candidate for Paxlovid. Discussed pros and cons of Paxlovid, patient would like to move forward with therapy I will obtain a CBC and CMP to assess renal function. I discussed case with both the on-call pharmacist from [facility] and our facility. Once the CMP is back and renal function is assessed they will place the order for the medication. White blood cell count of 3.43 hemoglobin 11.8 hematocrit 30.4 platelet count 152. Potassium 3.1, will give 40 p.o. potassium. Renal function normal, GFR greater than 60. Pharmacist placed order for full dose of Paxlovid. It was also recommended that based upon the drug interaction, she cut her dose of hydrocodone in half while taking this medication. I discussed this with the patient and she understands. Fever is responding nicely with the additional ibuprofen. We also discussed the latest CDC recommendations for quarantining. Standard discharge and return precautions were provided. Patient understands, is agreeable to this plan, and has no additional questions or concerns upon discharge. This documentation was generated using [employer] system, please disregard any oddities of phrase or misspellings. Medical Records Medical records reviewed: Yes I reviewed the patient's medical records. Lab Data Lab results reviewed: Yes I reviewed the patient's lab results. Labs: Laboratory Tests Range/Units 12/15/21 12/15/21 12/15/21 17:20 17:52 18:56 WBC (4.4-10.8) 10^3/uL RBC (3.93-5.22) 10^6/uL Hgb (11.2-15.7) g/dL Hct (36.0-46.0) % MCV (80-95) fL MCH (27.0-33.0) pg MCHC (32.0-36.0) % RDW (11.7-14.6) % Plt Count (130-400) 10^3/uL MPV (8.0-11.0) fL Immature Gran % Neutrophils % Lymphocytes % Monocytes % Eosinophils % Basophils % Nucleated RBC % (0.0-0.3) % Absolute Neutrophils (1.2-6.7) 10^3/uL Absolute Lymphocytes (1.2-3.4) 10^3/uL Absolute Monocytes (0.1-0.8) 10^3/uL Absolute Eosinophils (0.0-0.7) 10^3/uL Absolute Basophils (0.0-0.2) 10^3/uL Sodium (136-145) mmol/L 139 Potassium (3.5-5.1) mmol/L 3.1 L Chloride (98-107) mmol/L 104 Carbon Dioxide (21.0-32.0) mmol/L 23.1 Anion Gap (3-11) mmol/L 11.9 H BUN (7-18) mg/dL 9 Creatinine (0.55-1.02) mg/dL 0.8 Estimated GFR/1.73 m2 (mL/min/1.73m2) >= 60.00 Glucose (74-106) mg/dL 111 H Calcium (8.5-10.1) mg/dL 8.2 L Total Bilirubin (0.2-1.0) mg/dL 0.2 AST (15-37) U/L 49 H ALT (14-59) U/L 38 Alkaline Phosphatase (46-116) U/L 56 Total Protein (6.4-8.2) g/dL 6.5 Albumin (3.4-5.0) g/dL 3.5 Urine Color (Yellow) Yellow Urine Clarity (Clear) Clear Urine pH (5-8) 6.5 Ur Specific Fletcher (1.005-1.025) 1.025 Urine Protein (Negative) mg/dL 30 H Urine Ketones (Negative) mg/dL >=160 H Urine Blood (Negative) Negative Urine Nitrite (Negative) Negative Urine Bilirubin (Negative) Negative Urine Urobilinogen (Up TO 0.2) EU/dL 0.2 Ur Leukocyte Esterase (Negative) Negative Urine RBC (0-2) HPF 3-5 H Urine WBC (0-5) HPF 0-2 Ur Epithelial Cells (Negative) HPF Few Urine Crystals (Negative) HPF Negative Urine Bacteria (Negative) HPF Rare Urine Casts (Negative) LPF Negative Urine Mucus (Negative) Moderate Ur Culture Indicated? No Urine Glucose (Negative) mg/dL Negative COVID-19 Source Nasopharynx SARS-CoV-2 (PCR) (Negative) Positive A Influenza Type A (PCR) (Negative) Negative Influenza Type B (PCR) (Negative) Negative RSV (PCR) (Negative) Negative Range/Units 12/15/21 18:56 WBC (4.4-10.8) 10^3/uL 3.43 L RBC (3.93-5.22) 10^6/uL 3.78 L Hgb (11.2-15.7) g/dL 11.8 Hct (36.0-46.0) % 36.4 MCV (80-95) fL 96 H MCH (27.0-33.0) pg 31.2 MCHC (32.0-36.0) % 32.4 RDW (11.7-14.6) % 12.1 Plt Count (130-400) 10^3/uL 152 MPV (8.0-11.0) fL 10.9 Immature Gran % 0.6 Neutrophils % 54.7 Lymphocytes % 28.9 Monocytes % 15.2 Eosinophils % 0.0 Basophils % 0.6 Nucleated RBC % (0.0-0.3) % 0.0 Absolute Neutrophils (1.2-6.7) 10^3/uL 1.88 Absolute Lymphocytes (1.2-3.4) 10^3/uL 0.99 L Absolute Monocytes (0.1-0.8) 10^3/uL 0.52 Absolute Eosinophils (0.0-0.7) 10^3/uL 0.00 Absolute Basophils (0.0-0.2) 10^3/uL 0.02 Sodium (136-145) mmol/L Potassium (3.5-5.1) mmol/L Chloride (98-107) mmol/L Carbon Dioxide (21.0-32.0) mmol/L Anion Gap (3-11) mmol/L BUN (7-18) mg/dL Creatinine (0.55-1.02) mg/dL Estimated GFR/1.73 m2 (mL/min/1.73m2) Glucose (74-106) mg/dL Calcium (8.5-10.1) mg/dL Total Bilirubin (0.2-1.0) mg/dL AST (15-37) U/L ALT (14-59) U/L Alkaline Phosphatase (46-116) U/L Total Protein (6.4-8.2) g/dL Albumin (3.4-5.0) g/dL Urine Color (Yellow) Urine Clarity (Clear) Urine pH (5-8) Ur Specific Fletcher (1.005-1.025) Urine Protein (Negative) mg/dL Urine Ketones (Negative) mg/dL Urine Blood (Negative) Urine Nitrite (Negative) Urine Bilirubin (Negative) Urine Urobilinogen (Up TO 0.2) EU/dL Ur Leukocyte Esterase (Negative) Urine RBC (0-2) HPF Urine WBC (0-5) HPF Ur Epithelial Cells (Negative) HPF Urine Crystals (Negative) HPF Urine Bacteria (Negative) HPF Urine Casts (Negative) LPF Urine Mucus (Negative) Ur Culture Indicated? Urine Glucose (Negative) mg/dL COVID-19 Source SARS-CoV-2 (PCR) (Negative) Influenza Type A (PCR) (Negative) Influenza Type B (PCR) (Negative) RSV (PCR) (Negative) HPI General Mode of arrival: ambulatory . Date/Time Provider Initiated Documentation: 12/15/21 17:12 . Limitations to Documentation: no limitations . Information obtained by: patient and family . History of Present Illness 46 year old F presents to the emergency department with the chief complaint of Fever and body aches, described as moderate, with intensity rated at 7. Quality is described as aching, and is localized to the head and back. Patient reports no radiation. Patient started experiencing this hour(s) (1) and it has been constant. improves with No relieving factors improve symptom(s), No exacerbating factors reported . Patient notes cough (Mild, dry), fever/chills and headaches. Patient did receive the following treatments prior to arrival, other (Acetaminophen) Related Data Home Medications Medication Instructions Recorded Confirmed albuterol sulfate 90 mcg/actuation 1 - 2 puff INHALATION Q4H PRN 10/15/13 12/15/21 aerosol inhaler (ProAir HFA) inhaler ascorbic acid (vitamin C) 1,000 mg 1,000 mg PO DAILY tab.chew 10/15/13 12/15/21 chewable tablet cholecalciferol (vitamin D3) 25 1,000 unit PO DAILY 10/15/13 12/15/21 mcg (1,000 unit) capsule epinephrine 0.3 mg/0.3 mL 0.3 mg (0.3 mL) IJ PRN #1 unit 04/24/14 11/02/21 injection, auto-injector (EpiPen 2-Dayo) esomeprazole magnesium 40 mg 40 mg PO DAILY 04/24/14 12/15/21 capsule,delayed release (Nexium) Medical Marijuania PRN 04/13/16 11/02/21 ferrous sulfate 325 mg (65 mg 325 mg PO DAILY 09/30/16 11/02/21 iron) tablet levothyroxine 100 mcg tablet 125 mcg PO DAILY tab-cap 03/04/19 12/15/21 vitamin B complex 1 cap PO DAILY 11/02/20 12/15/21 acetaminophen 500 mg capsule 1,000 mg PO Q8H PRN PRN #90 cap 11/18/20 11/02/21 calcium carbonate 333 mg-magnesium tab PO DAILY 11/18/20 11/02/21 oxide 133 mg-zinc gluc 5 mg tablet hydrocodone 5 mg-acetaminophen 325 tab PO BID 12/15/21 mg tablet Previous Rx's Medication Instructions Recorded epinephrine 0.3 mg/0.3 mL 0.3 mg (0.3 mL) IJ PRN #1 unit 04/24/14 injection, auto-injector (EpiPen 2-Dayo) acetaminophen 500 mg capsule 1,000 mg PO Q8H PRN PRN #90 cap 11/18/20 Allergies Allergy/AdvReac Type Severity Reaction Status Date / Time aspirin Allergy Severe Anaphylaxsi Unverified 11/02/21 08:07 s venom-honey bee Allergy Anaphylaxsi Unverified 11/02/21 08:07 s mold AdvReac Severe Verified 11/02/21 08:07 oxycodone AdvReac Severe Nausea & Unverified 11/02/21 08:07 vomiting General Stated Complaint: Fever GITA: 3 Review of Systems Constitutional Constitutional: Denies fatigue, Reports fever(s), Reports headache(s) and Denies weakness ENT Ears, Nose, Mouth, and Throat: Reports headache(s), Denies neck pain and Denies sore throat Cardiovascular Cardiovascular: Denies chest pain and Denies dyspnea Respiratory Respiratory: Reports cough and Denies dyspnea Gastrointestinal Gastrointestinal: Denies abdominal pain, Denies constipation, Denies diarrhea, Denies nausea and Denies vomiting Genitourinary Genitourinary: Denies dysuria Musculoskeletal Musculoskeletal: Reports myalgias and Denies neck pain Integumentary/Breasts Skin/Breast: Denies rash Neurologic Neurologic: Reports headache(s) and Denies weakness Endocrine Endocrine: Denies fatigue PFSH All Active Problems (Updated 12/15/21 @ 20:08 by EFRAIN Johnston) COVID (Acute) Tendonitis of long head of biceps brachii of right shoulder (Acute) De Quervain's tenosynovitis, right (Acute) Right wrist pain (Acute) Epicondylitis, lateral, right (Acute) Superior labrum [id number] (SLAP) tear of left shoulder (Acute) Calcific tendonitis of left shoulder (Acute) Biceps tendonitis on left (Acute) Carpal tunnel syndrome, left (Acute) S/P ECTR: 11/18/2020 Asthma (Acute 08/22/14) Chronic SI joint pain (Acute 08/22/14) Gastritis (Acute 04/13/16) Esophagitis (Acute) Small intestinal bacterial overgrowth (Acute) Chronic pain (Chronic) Hypothyroidism (Chronic) Chronic low back pain (Acute) Medical History CTS (carpal tunnel syndrome) Iron deficiency anemia Irregular menses Microcytic anemia 09/2013 Hct 28. Pt was taking NSAIDs for SI joint pain. EGD done- nl findings. Anemia resolved with stopping NSAIDs and supplemental iron. Sacroiliac joint dysfunction Surgical History EGD - IV Sedation 10/21/13 for eval of GI pain and microcytic anemia. Nl bx. EGD - MAC (04/13/16) History of back surgery herniated disk removed from lower back. 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 Female Reproductive History Menstrual control method: permanent sterilization Exam Const General: cooperative, healthy appearing, comfortable and no acute distress Orientation: alert, awake and oriented x3 HENMT Head: normal to inspection, normocephalic and atraumatic Face and sinus: normal facial exam Mouth: moist mucous membranes Throat: posterior oropharynx normal Eyes General: appearance normal, both eyes and all related structures Conjunctivae: conjunctivae normal Neck Neck: normal visual inspection, full ROM, no lymphadenopathy, no meningeal signs, trachea midline, supple and nontender Resp Effort & Inspection: normal respiratory effort and able to speak in complete sentences Auscultation: clear to auscultation bilaterally Cardio Rate: regular rate Rhythm: regular rhythm GI Palpation: soft and nontender Back/Spine/Pelvis Back: no CVA tenderness and back tenderness (Diffuse) Skin General skin exam: no rashes or lesions noted Neuro General: patient alert, patient awake, moves all extremities and no focal motor deficits Cognition: normal cognition Speech: speech normal Gait: normal gait Sensory Exam: no sensory deficits noted Extrem General: normal to inspection, full ROM and capillary refill normal Psych Appearance: grossly normal Mental Status: mental status grossly normal Course Vital Signs Vital signs: Vital Signs Temperature 39.1 C H 12/15/21 17:10 Pulse 96 H 12/15/21 17:10 Respiratory Rate 18 12/15/21 17:10 Blood Pressure 134/75 12/15/21 17:10 Pulse Oximetry 96 12/15/21 17:10 Temperature 39.1 C H 12/15/21 17:10 Temperature Source Oral 12/15/21 17:10 Pulse 96 H 12/15/21 17:10 Respiratory Rate 18 12/15/21 17:10 Respiratory Effort Non-Labored 12/15/21 17:14 Blood Pressure 134/75 12/15/21 17:10 Pulse Oximetry 96 12/15/21 17:10 Oxygen Delivery Method Room Air 12/15/21 17:10 Oxygen Flow Rate 0 12/15/21 17:10
[2021-12-15] MEDS: Ibuprofen 800 MG TAB PO (17:45)
[2021-12-15 18:02] LABS: Bilirubin Negative (Negative); Blood Negative (Negative); Clarity Clear (Clear); Glucose Negative (Negative); Ketones >=160 mg/dL (Negative); Leukocyte Esterase Negative (Negative); Nitrite Negative (Negative); Specific Gravity 1.025 (1.005-1.025); Urobilinogen 0.2 EU/dL (Up TO 0.2); pH 6.5 (5-8)
[2021-12-15 18:09] LABS: Bacteria Rare HPF (Negative); C & S Indicated? No; Casts Negative LPF (Negative); Crystals Negative HPF (Negative); Epithelial Cells Few HPF (Negative); Mucus Moderate (Negative); WBC 0-2 HPF (0-5)
[2021-12-15 18:11] LABS: Influenza A PCR Negative (Negative); Influenza B PCR Negative (Negative); RSV PCR Negative (Negative)
[2021-12-15 18:16] LABS: COVID-19 PCR Positive (Negative); Source Nasopharynx
[2021-12-15 19:13] LABS: Abs Immature Grans 0.02 10^3/uL (0.0-0.06); Absolute Basophil Count 0.02 10^3/uL (0.0-0.2); Absolute Lymphocyte Count 0.99 10^3/uL (1.2-3.4); Absolute Monocyte Count 0.52 10^3/uL (0.1-0.8); Absolute Neutrophil Count 1.88 10^3/uL (1.2-6.7); Basophils % 0.6; HCT 36.4 % (36.0-46.0); HGB 11.8 g/dL (11.2-15.7); Immature Grans % 0.6; Lymphocytes % 28.9; MCH 31.2 pg (27.0-33.0); MCHC 32.4 % (32.0-36.0); MCV 96 fL (80-95); MPV 10.9 fL (8.0-11.0); Monocytes % 15.2; Neutrophils % 54.7; Platelet Count 152 10^3/uL (130-400); RBC 3.78 10^6/uL (3.93-5.22); RDW 12.1 % (11.7-14.6); RDW-SD 42.9 fL; WBC 3.43 10^3/uL (4.4-10.8)
[2021-12-15 19:57] LABS: ALT 38 U/L (14-59); AST 49 U/L (15-37); Albumin 3.5 g/dL (3.4-5.0); Alkaline Phosphatase 56 U/L (46-116); Anion Gap 11.9 mmol/L (3-11); BUN 9 mg/dL (7-18); Bilirubin, Total 0.2 mg/dL (0.2-1.0); CO2 23.1 mmol/L (21.0-32.0); CREATININE 0.8 mg/dL (0.55-1.02); Calcium 8.2 mg/dL (8.5-10.1); Chloride 104 mmol/L (98-107); Glucose 111 mg/dL (74-106); Potassium 3.1 mmol/L (3.5-5.1); Sodium 139 mmol/L (136-145); Total Protein 6.5 g/dL (6.4-8.2)
[2021-12-15] MEDS: Potassium Chloride 20 MEQ TABCR 40 MEQ PO (20:15)
== END 2021-12-15 20:22 | disposition home or self-care (01) ==
PROVIDERS: Emergency Provider Physician Assistant; PCP Nurse Practitioner Family
DX: U07.1 COVID-19 (principal)
CPT/HCPCS: 80053; 87637; 99283; 81003; 81015; 85025

== ENCOUNTER 2022-01-31 09:02 | Outpatient (REF) | payer MEDICAID, SELFPAY ==
[2022-01-31 14:58] LABS: HCT 38.5 % (36.0-46.0); HGB 12.2 g/dL (11.2-15.7); MCH 29.3 pg (27.0-33.0); MCHC 31.7 % (32.0-36.0); MCV 92 fL (80-95); MPV 11.2 fL (8.0-11.0); Platelet Count 261 10^3/uL (130-400); RBC 4.17 10^6/uL (3.93-5.22); RDW-SD 41.3 fL; WBC 6.96 10^3/uL (4.4-10.8)
[2022-01-31 15:24] LABS: ALT 23 U/L (14-59); AST 23 U/L (15-37); Albumin 3.6 g/dL (3.4-5.0); Alkaline Phosphatase 53 U/L (46-116); Anion Gap 6.8 mmol/L (3-11); BUN 12 mg/dL (7-18); Bilirubin, Total 0.4 mg/dL (0.2-1.0); CO2 27.2 mmol/L (21.0-32.0); CREATININE 0.7 mg/dL (0.55-1.02); Chloride 103 mmol/L (98-107); Glucose 96 mg/dL (74-106); Potassium 3.9 mmol/L (3.5-5.1); Sodium 137 mmol/L (136-145); TSH (W/Ref FT4) 1.49 uIU/mL (0.36-3.74); Total Protein 6.9 g/dL (6.4-8.2)
[2022-01-31 15:32] LABS: Iron 69 ug/dL (50-170); Total Iron Binding Capacity 517 ug/dL (250-450); Transferrin Sat 13 % (15-50)
[2022-01-31 23:37] LABS: Calculated LDL 167 mg/dL (<100); Cholesterol 255 mg/dL (<200); HDL Cholesterol 39 mg/dL (40-60); Triglyceride 248 mg/dL (<150)
== END 2022-01-31 09:03 | disposition home or self-care (01) ==
LOC: NCHCN 09:02
PROVIDERS: PCP Nurse Practitioner Family; Visit Provider Nurse Practitioner Family
DX: E03.9 Hypothyroidism, unspecified (principal); Z86.2 Personal history of diseases of the blood and blood-forming organs and certain disorders involving the immune mechanism; G89.29 Other chronic pain; Z51.81 Encounter for therapeutic drug level monitoring
CPT/HCPCS: 80053; 80061; 85027; 83540; 83550; 84443

== ENCOUNTER 2022-03-08 18:07 | Emergency (ER) | payer MEDICAID, SELFPAY ==
[2022-03-08] MEDS: EPINEPHrine 0.3 MG KIT IM (18:12)
[2022-03-08] MEDS: diphenhydrAMINE 50 MG/ML VIAL (18:15)
[2022-03-08 18:16] VITALS: BP 152/97; PULSE 89; RESP 18; O2SAT 100
--- NOTE | 2022-03-08 18:21 | ED.GENADUL_ITS ---
Discharge Plan Disposition Patient Disposition: HOME Condition: Improving Discharge Details Clinical Impression: Allergic reaction to bee sting Primary Care Provider: REGGIE BROWNLEE ED Provider: Stephania Desai Home Meds and New Rx's Prescriptions: New epinephrine [EpiPen] 0.3 mg/0.3 mL auto-injector 0.3 mg IM ONCE PRN (Reason: anaphylaxis) Qty: 2 0RF Rx Instructions: as a single dose; may repeat once No Action vitamin B complex Capsule 1 cap PO DAILY albuterol sulfate [ProAir HFA] 8.5 GM HFA aerosol inhaler 1 - 2 puff Inhalation Q4H PRN ascorbic acid (vitamin C) 1,000 MG tablet,chewable 1,000 mg PO DAILY cholecalciferol (vitamin D3) 1,000 UNIT capsule 1,000 unit PO DAILY levothyroxine 100 mcg tablet 125 mcg PO DAILY esomeprazole magnesium [Nexium] 40 MG capsule,delayed release(DR/EC) 40 mg PO DAILY epinephrine [EpiPen 2-Dayo] 0.3 MG/0.3 ML auto-injector 0.3 mg IJ PRN Qty: 1 1RF Medical Marijuania 1 PRN Label Comments: 09/30/16 pt reports she has medical marijuania card. Pt reports she uses 3-4 times a day prn. jw hydrocodone-acetaminophen 5-325 mg tablet PO BID Label Comments: TAKE 1 TABLET BY MOUTH TWICE DAILY NEEDED FOR PAIN calcium carb-mag ox-zinc gluc 333-133-5 mg Tablet 1 tab PO DAILY Label Comments: started a Calcium, magnesium, zinc tablet.HE acetaminophen 500 mg capsule 1,000 mg PO Q8H PRN PRNQty: 90 0RF Discharge Instructions Instructions: Insect Bite or Sting (ED), General Allergic Reaction (ED) Additional Instructions: Take 1 or 2 tablets of Benadryl every 6-8 hours as needed for itching and/or hives. For a less sedating option you may also take Zyrtec or Cetirizine over the counter also. Please take Pepcid 20 mg daily for the next 4 to 5 days which can obtain [id number]. If you have Recurring throat tightening, cough or any upper respiratory type symptoms you may use another Epi-pen. If this occurs you need to return to the emergency department immediately. Follow up with primary care provider in 3-5 days. Return to ED sooner if any worsening or concerns. Increase oral fluids. Referrals: REGGIE BROWNLEE, NEUROSURGERY RESEARCH DIRECTOR [Primary Care Provider] - Return if symptoms worsen Medical Decision Making 46-year-old female presents to the ER with allergic reaction after being stung by a bee to her left leg 30 minutes prior to arrival. Patient began with throat swelling, dry cough and trouble swallowing. 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 She did have to be intubated as an . Patient is speaking in full sentences upon arrival. No wheezing noted to auscultation no stridor. Patient received EpiPen in triage and 25 mg of Benadryl IV by staff training and development manager. She is pale and diaphoretic. O2 sat 100 percent on room air. Blood pressure is 152/97. 1827: 125 mg Solu-Medrol, 20 Pepcid, normal saline 1 L IV ordered. Patient was placed on the monitor. We will continue to observe. 2019: Patient re-evaluation, she reports she feels much better. No coughing. No swelling. Patient reports that she does not feel like her throat is tightening anymore. We will continue to observe for at least another hour. Patient is aware plan of care verbalized understanding. 2124: Patient is requesting to be discharged home. Will patient for over 3 hours here in the department she remains hemodynamically stable Wheezing no stridor noted. Vital signs remained stable. I did discuss home care with her and strict return instructions. EpiPen prescription was written. They do verbalize understanding and reports that they will stop at the store Benadryl and Pepcid and or cetirizine. This text was generated using [employer] system, please disregard any oddities of phrase or misspellings. Medical Records Medical records reviewed: Yes I reviewed the patient's medical records. HPI General Mode of arrival: ambulatory . Date/Time Provider Initiated Documentation: 03/08/22 18:20 . Limitations to Documentation: no limitations . Information obtained by: patient, RN notes reviewed and old records reviewed . HPI Narrative: 46-year-old female presents to the ER with allergic reaction after being stung by a bee to her left leg 30 minutes prior to arrival. Patient began with throat swelling, dry cough and trouble swallowing. 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 She did have to be intubated as an infant. Patient is speaking in full sentences upon arrival. No wheezing noted to auscultation no stridor. Patient received EpiPen in triage and 25 mg of Benadryl IV by staff training and development manager. She is pale and diaphoretic. O2 sat 100 percent on room air. Blood pressure is 152/97. Related Data Home Medications Medication Instructions Recorded Confirmed albuterol sulfate 90 mcg/actuation 1 - 2 puff inhalation Q4H PRN 10/15/13 03/08/22 aerosol inhaler (ProAir HFA) ascorbic acid (vitamin C) 1,000 mg 1,000 mg PO DAILY 10/15/13 03/08/22 chewable tablet cholecalciferol (vitamin D3) 25 1,000 unit PO DAILY 10/15/13 03/08/22 mcg (1,000 unit) capsule epinephrine 0.3 mg/0.3 mL 0.3 mg (0.3 mL) IJ PRN #1 unit 04/24/14 03/08/22 injection, auto-injector (EpiPen 2-Dayo) esomeprazole magnesium 40 mg 40 mg PO DAILY 04/24/14 03/08/22 capsule,delayed release (Nexium) Medical Marijuania 1 PRN 04/13/16 11/02/21 levothyroxine 100 mcg tablet 125 mcg PO DAILY 03/04/19 03/08/22 vitamin B complex 1 cap PO DAILY 11/02/20 03/08/22 acetaminophen 500 mg capsule 1,000 mg PO Q8H PRN PRN #90 caps 11/18/20 03/08/22 calcium carbonate 333 mg-magnesium 1 tab PO DAILY 11/18/20 03/08/22 oxide 133 mg-zinc gluc 5 mg tablet hydrocodone 5 mg-acetaminophen 325 tab PO BID 12/15/21 mg tablet epinephrine 0.3 mg/0.3 mL 0.3 mg (0.3 mL) IM ONCE PRN 03/08/22 injection, auto-injector (EpiPen) anaphylaxis #2 ea Previous Rx's Medication Instructions Recorded epinephrine 0.3 mg/0.3 mL 0.3 mg (0.3 mL) IJ PRN #1 unit 04/24/14 injection, auto-injector (EpiPen 2-Dayo) acetaminophen 500 mg capsule 1,000 mg PO Q8H PRN PRN #90 caps 11/18/20 epinephrine 0.3 mg/0.3 mL 0.3 mg (0.3 mL) IM ONCE PRN 03/08/22 injection, auto-injector (EpiPen) anaphylaxis #2 ea Allergies Allergy/AdvReac Type Severity Reaction Status Date / Time aspirin Allergy Severe Anaphylaxsi Unverified 03/08/22 18:30 s venom-honey bee Allergy Anaphylaxsi Unverified 03/08/22 18:30 s mold AdvReac Severe Verified 03/08/22 18:30 oxycodone AdvReac Severe Nausea & Unverified 03/08/22 18:30 vomiting General Stated Complaint: Allergic GITA: 2 Review of Systems All systems reviewed & are unremarkable except as noted in HPI and below ENT Ears, Nose, Mouth, and Throat: Denies dizziness and Reports throat swelling (Trouble swallowing) Cardiovascular Cardiovascular: Denies chest pain Respiratory Respiratory: Reports cough, Denies stridor and Denies wheezing Gastrointestinal Gastrointestinal: Denies abdominal pain, Denies diarrhea, Denies nausea and Denies vomiting Neurologic Neurologic: Denies confusion and Denies dizziness Psychiatric Psychiatric: Denies confusion Allergic/Immunologic Allergic/Immunologic: Reports throat swelling (Trouble swallowing) and Denies wheezing PFSH All Active Problems (Updated 03/08/22 @ 20:23 by Stephania Desai NP) Allergic reaction to bee sting (Acute) COVID (Acute) Tendonitis of long head of biceps brachii of right shoulder (Acute) De Quervain's tenosynovitis, right (Acute) Right wrist pain (Acute) Epicondylitis, lateral, right (Acute) Superior labrum aklwvsfy-gv-bhyqrxaev (SLAP) tear of left shoulder (Acute) Calcific tendonitis of left shoulder (Acute) Biceps tendonitis on left (Acute) Carpal tunnel syndrome, left (Acute) S/P ECTR: 11/18/2020 Asthma (Acute 08/22/14) Chronic SI joint pain (Acute 08/22/14) Gastritis (Acute 04/13/16) Esophagitis (Acute) Small intestinal bacterial overgrowth (Acute) Chronic pain (Chronic) Hypothyroidism (Chronic) Chronic low back pain (Acute) Medical History CTS (carpal tunnel syndrome) Iron deficiency anemia Irregular menses Microcytic anemia 09/2013 Hct 28. Pt was taking NSAIDs for SI joint pain. EGD done- nl findings. Anemia resolved with stopping NSAIDs and supplemental iron. Sacroiliac joint dysfunction Surgical History EGD - IV Sedation 10/21/13 for eval of GI pain and microcytic anemia. Nl bx. EGD - MAC (04/13/16) History of back surgery herniated disk removed from lower back. 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 Female Reproductive History Menstrual control method: permanent sterilization Exam Narrative Exam Narrative: Constitutional: Alert and oriented x3. Appears stated age. Obese body habitus. Patient appears anxious Head: Normocephalic, no trauma. Eyes: Pupils PERRL, Red reflex noted, EOM's intact. Eyelids symmetrical without lesions, discharge, or swelling. ENT: Bilateral TM's WNL, External ear normal to inspection, no mastoid TTP, swelling, or erythema, Nasal turbinates WNL, no nasal discharge. Normal dentition, Posterior pharynx WNL, no exudate. Uvula midline tonsils 1+ bilaterally, no significant posterior oropharynx edema or swelling noted. Chest: RRR, Normal S1, S2, distal pulses intact. Resp: Lungs clear to auscultation bilaterally, no wheezes, rales, or rhonchi. No stridor auscultated Abdomen: Soft, non-distended, Normoactive bowel sounds all 4 quads. Musculoskeletal: Normal gait, 5/5 strength to all four extremities. Skin: No suspicious rashes or lesions. Capillary refill less than 2 sec. pale, slightly diaphoretic Neurologic: Cranial nerves II-XII intact. Alert and oriented x 3. Motor: No deficits noted. Sensory: Intact bilaterally all 4 extremities. Reflexes: DTR's intact bilaterally.. Hematologic/Lymphatic: No ecchymosis, no lymphadenopathy. Course Vital Signs Vital signs: Vital Signs Pulse 89 03/08/22 18:16 Respiratory Rate 18 03/08/22 18:16 Blood Pressure 152/97 H 03/08/22 18:16 Pulse Oximetry 100 03/08/22 18:16 Pulse 89 03/08/22 18:16 Respiratory Rate 18 03/08/22 18:16 Blood Pressure 152/97 H 03/08/22 18:16 Blood Pressure Position Sitting 03/08/22 18:16 Pulse Oximetry 100 03/08/22 18:16
[2022-03-08] MEDS: Famotidine 20 MG/2 ML VIAL IVP (18:24)
[2022-03-08] MEDS: Normal Saline 1,000 ML 1000 ML IV (18:26)
[2022-03-08] MEDS: methylPREDNISolone SUCC 125 MG VIAL IVP (18:26)
[2022-03-08 21:46] VITALS: BP 125/77; PULSE 65; RESP 14; TEMP 36.7; O2SAT 99
== END 2022-03-08 21:42 | disposition home or self-care (01) ==
PROVIDERS: Emergency Provider Registered Nurse Emergency; PCP Nurse Practitioner Family
DX: T63.441A Toxic effect of venom of bees, accidental (unintentional), initial encounter (principal); R22.1 Localized swelling, mass and lump, neck; R13.10 Dysphagia, unspecified; R05.9 Cough, unspecified; Z87.891 Personal history of nicotine dependence
CPT/HCPCS: 96361; 96372; 96374; 96375; 99284; J0171; J1200; J2930

== ENCOUNTER 2022-03-14 07:34 | Emergency (ER) | payer MEDICAID, SELFPAY ==
[2022-03-14] VITALS (40 sets, daily range): BP systolic 103–147; BP diastolic 50–90; PULSE 58–110; RESP 10–21; TEMP 36.6–36.7; O2SAT 94–100
--- NOTE | 2022-03-14 07:45 | RT.EKG_ITS ---
APPROVED REPORT Exam: Resting ECG Reason for Exam: chest pain Patient Location: E HR:82 bpm ECG Measurements Heart Rate 82 AXIS MS 134 P 49 QRSd 89 QRS 30 QT 404 T 48 QTc 473 Conclusion Sinus rhythm...normal P axis, V-rate 60- 99 ST depr, consider ischemia, anterolateral lds...ST <-0.10mV, I aVL V2-V6 sinus rhythm at 82, normal axis, anterolateral ST depression, no prior for comparison, no STEMI, nond iagnostic EKG
[2022-03-14] MEDS: methylPREDNISolone SUCC 125 MG VIAL IVP (08:00)
[2022-03-14] MEDS: diphenhydrAMINE 50 MG/ML VIAL IVP (08:00)
[2022-03-14] MEDS: Famotidine 20 MG/2 ML VIAL IVP (08:00)
[2022-03-14] MEDS: Normal Saline 1,000 ML 1000 ML IV (08:00)
--- NOTE | 2022-03-14 08:00 | ED.GENADUL_ITS ---
Discharge Plan Disposition Patient Disposition: HOME Condition: Improving Discharge Details Clinical Impression: Allergic reaction, Hypokalemia, Hypomagnesemia, Chest pain Primary Care Provider: REGGIE BROWNLEE ED Provider: Sandra Niño Home Meds and New Rx's Prescriptions: Continued vitamin B complex Capsule 1 cap PO DAILY albuterol sulfate [ProAir HFA] 8.5 GM HFA aerosol inhaler 1 - 2 puff Inhalation Q4H PRN ascorbic acid (vitamin C) 1,000 MG tablet,chewable 1,000 mg PO DAILY cholecalciferol (vitamin D3) 1,000 UNIT capsule 1,000 unit PO DAILY levothyroxine 100 mcg tablet 125 mcg PO DAILY esomeprazole magnesium [Nexium] 40 MG capsule,delayed release(DR/EC) 40 mg PO DAILY epinephrine [EpiPen 2-Dayo] 0.3 MG/0.3 ML auto-injector 0.3 mg IJ PRN Qty: 1 1RF Medical Marijuania 1 PRN Label Comments: 09/30/16 pt reports she has medical marijuania card. Pt reports she uses 3-4 times a day prn. jw hydrocodone-acetaminophen 5-325 mg tablet PO BID Label Comments: TAKE 1 TABLET BY MOUTH TWICE DAILY NEEDED FOR PAIN epinephrine [EpiPen] 0.3 mg/0.3 mL auto-injector 0.3 mg IM ONCE PRN (Reason: anaphylaxis) Qty: 2 0RF Rx Instructions: as a single dose; may repeat once calcium carb-mag ox-zinc gluc 333-133-5 mg Tablet 1 tab PO DAILY Label Comments: started a Calcium, magnesium, zinc tablet.HE acetaminophen 500 mg capsule 1,000 mg PO Q8H PRN PRNQty: 90 0RF Discharge Instructions Instructions: Chest Pain (ED), Hypokalemia (ED), Hypomagnesemia (ED), General Allergic Reaction (ED) Additional Instructions: Please fill the EpiPen prescription that was provided to you at your last emergency department visit. Please return immediately to the emergency department if you develop any new or worsening symptoms, if your condition does not improve as expected, or if you become otherwise concerned. It is extremely important that you call soon as possible to make an appointment to be seen in follow-up for this visit by your primary care doctor this week. You will also need to have a stress test as we discussed; the stress test has been ordered for you. Referrals: REGGIE BROWNLEE, [employer] [Primary Care Provider] - Medical Decision Making Nika Villarreal is a 46-year-old woman presenting to emergency department with allergic reaction. Patient reports that 20 minutes prior to arrival she was stung by a bee on her left ankle. She reports that within minutes after standing her administered her IM EpiPen into her right thigh. Patient reports that she had no symptoms at all until approximately 5 minutes after receiving the epinephrine, when she felt numbness and stiffness in both of her hands and an overall sense of malaise. Patient reports that she also developed a very dry mouth. Patient reports that her allergic reaction to bee stings in the past has been a sensation of throat swelling and difficulty swallowing, which she did not experience today. She reports that she has not received EpiPen in many years. Patient reports that she was seen in this emergency department 4 days ago for a bee sting, but did not receive epinephrine during that encounter, did not self administer epinephrine after that standing. She denies pain, swelling, difficulty breathing, rash. She denies any symptoms prior to standing this morning or in the past few days; no fever, vomiting, diarrhea, pain, prior numbness, current or prior weakness. Did not have anything to eat or drink this morning. On exam patient appears anxious, mild cyanosis bilateral hands with delayed cap refill, mucous membranes dry. No facial swelling, no intraoral edema, handling secretions without issue. No rash. Lungs clear to auscultation bilaterally. Speaking in full sentences. No neuro deficit. Concern for anaphylaxis, side effects of epinephrine administration, other. Plan for IV placement, IV Benadryl, IV Pepcid, IV Solu-Medrol, telemetry, IV fluid hydration, plan to monitor frequently and reassess. Cyanosis of hands resolved, cap refill bilateral fingers normal within minutes of initial assessment. Patient began to report right-sided chest pain/abdominal pain that she describes as a pressure sensation, reports that it feels like gas. Denies any chest tightness, difficulty breathing. Plan for EKG. Pain resolved within 2 minutes, prior to EKG being obtained. Patient reports that she continues to feel general sense of malaise and now has nausea, no pain, no difficulty breathing. EKG shows anterolateral ST depressions, no prior available for comparison. Patient with aspirin allergy, will hold nitroglycerin at this time given complete resolution of pain. We will continue to monitor. Patient reports feeling significantly better after IV fluids and IV meds, heart rate in 70s. Has had no further chest pain. EKG repeated, ST changes improved. Plan for troponin x2. Labs reviewed, troponin negative, potassium 2.5, anion gap 17.5, magnesium 1.6. Unclear etiology of hypokalemia/hypomagnesemia. Patient states that she does drink at least 2 white Russians with vodka per night, she also states that she is being seen at [facility] for frequent bowel movements (not diarrhea). Patient states that she gets up 3-4 times at night to have bowel movement. Will replete potassium and magnesium, will repeat BMP after repletion. Electrolyte repletion completed. Patient with no further symptoms in the ED, patient states that she feels at her baseline and ready to go home. Has received 1.5 L IV fluid, has eaten without issue. Repeat troponin negative, repeat BMP shows potassium 4.3, anion gap 12.1. Plan for outpatient follow-up this week in addition to outpatient stress test given EKG changes. Patient is low risk by HEART score. Discussed appropriate home use of EpiPen (patient repo rts that she has prescription from last ED visit that she has not yet filled, will fill after discharge), discussed importance of outpatient follow-up with PCP this week as well as outpatient stress test. I had a discussion with Patient regarding return to emergency department precautions, home care, and importance of outpatient follow-up. Pt verbalizes understanding of the plan and is amenable. Patient discharged to home with clear plan for outpatient follow- up. All questions were answered. Disposition decision was made weighing the risks and benefits of hospitalization versus outpatient treatment, the risk for further decompensation, and the patient's wishes. Medical Records Medical records reviewed: Yes I reviewed the patient's medical records. Lab Data Lab results reviewed: Yes I reviewed the patient's lab results. Labs: Laboratory Tests Range/Units 03/14/22 03/14/22 03/14/22 07:44 07:44 11:55 WBC (4.4-10.8) 10^3/uL 13.49 H RBC (3.93-5.22) 10^6/uL 4.50 Hgb (11.2-15.7) g/dL 12.7 Hct (36.0-46.0) % 39.8 MCV (80-95) fL 88 MCH (27.0-33.0) pg 28.2 MCHC (32.0-36.0) % 31.9 L RDW (11.7-14.6) % 13.1 Plt Count (130-400) 10^3/uL 398 MPV (8.0-11.0) fL 10.9 Immature Gran % 0.0 Neutrophils % 42.0 Lymphocytes % 42.0 Atypical Lymphs % 7 Monocytes % 5.0 Eosinophils % 4.0 Basophils % 0.0 Nucleated RBC % (0.0-0.3) % 0.0 Absolute Neutrophils (1.2-6.7) 10^3/uL 5.67 Absolute Lymphocytes (1.2-3.4) 10^3/uL 6.61 H Absolute Monocytes (0.1-0.8) 10^3/uL 0.67 Absolute Eosinophils (0.0-0.7) 10^3/uL 0.54 Absolute Basophils (0.0-0.2) 10^3/uL 0.00 RBC Morphology Normal Sodium (136-145) mmol/L 140 Potassium (3.5-5.1) mmol/L 2.5 L* Chloride (98-107) mmol/L 100 Carbon Dioxide (21.0-32.0) mmol/L 22.5 Anion Gap (3-11) mmol/L 17.5 H BUN (7-18) mg/dL 10 Creatinine (0.55-1.02) mg/dL 1.0 Estimated GFR/1.73 m2 (mL/min/1.73m2) 59.69 Glucose (74-106) mg/dL 141 H Calcium (8.5-10.1) mg/dL 9.4 Magnesium (1.8-2.4) mg/dL 1.6 L Total Bilirubin (0.2-1.0) mg/dL 0.6 AST (15-37) U/L 18 ALT (14-59) U/L 26 Alkaline Phosphatase (46-116) U/L 59 Troponin I (<or=60) ng/L < 50 < 50 Total Protein (6.4-8.2) g/dL 7.4 Albumin (3.4-5.0) g/dL 4.1 Range/Units 03/14/22 14:02 WBC (4.4-10.8) 10^3/uL RBC (3.93-5.22) 10^6/uL Hgb (11.2-15.7) g/dL Hct (36.0-46.0) % MCV (80-95) fL MCH (27.0-33.0) pg MCHC (32.0-36.0) % RDW (11.7-14.6) % Plt Count (130-400) 10^3/uL MPV (8.0-11.0) fL Immature Gran % Neutrophils % Lymphocytes % Atypical Lymphs % Monocytes % Eosinophils % Basophils % Nucleated RBC % (0.0-0.3) % Absolute Neutrophils (1.2-6.7) 10^3/uL Absolute Lymphocytes (1.2-3.4) 10^3/uL Absolute Monocytes (0.1-0.8) 10^3/uL Absolute Eosinophils (0.0-0.7) 10^3/uL Absolute Basophils (0.0-0.2) 10^3/uL RBC Morphology Sodium (136-145) mmol/L 140 Potassium (3.5-5.1) mmol/L 4.3 D Chloride (98-107) mmol/L 106 Carbon Dioxide (21.0-32.0) mmol/L 21.9 Anion Gap (3-11) mmol/L 12.1 H BUN (7-18) mg/dL 8 Creatinine (0.55-1.02) mg/dL 1.1 H Estimated GFR/1.73 m2 (mL/min/1.73m2) 53.47 Glucose (74-106) mg/dL 130 H Calcium (8.5-10.1) mg/dL 8.5 Magnesium (1.8-2.4) mg/dL Total Bilirubin (0.2-1.0) mg/dL AST (15-37) U/L ALT (14-59) U/L Alkaline Phosphatase (46-116) U/L Troponin I (<or=60) ng/L Total Protein (6.4-8.2) g/dL Albumin (3.4-5.0) g/dL ECG Data Attestation: I personally reviewed and interpreted this ECG (s) as follows: Interpretation: EKG 07:51 shows sinus rhythm at 82, normal axis, anterolateral ST depression, no prior for comparison, no STEMI, nondiagnostic EKG EKG 08: 47 shows sinus rhythm at 74, normal axis, ST depressions from prior improved, no STEMI, nondiagnostic EKG HPI General Mode of arrival: wheelchair . Date/Time Provider Initiated Documentation: 03/14/22 07:38 . Limitations to Documentation: no limitations . Information obtained by: patient, family, RN notes reviewed and old records reviewed . HPI Narrative: Nika Villarreal is a 46-year-old woman presenting to emergency department with allergic reaction. Patient reports that 20 minutes prior to arrival she was stung by a bee on her left ankle. She reports that within minutes after standing her administered her IM EpiPen into her right thigh. Patient reports that she had no symptoms at all until approximately 5 minutes after receiving the epinephrine, when she felt numbness and stiffness in both of her hands and an overall sense of malaise. Patient reports that she also developed a very dry mouth. Patient reports that her allergic reaction to bee stings in the past has been a sensation of throat swelling and difficulty swallowing, which she did not experience today. She reports that she has not received EpiPen in many years. Patient reports that she was seen in this emergency department 4 days ago for a bee sting, but did not receive epinephrine during that encounter, did not self administer epinephrine after that standing. She denies pain, swelling, difficulty breathing, rash. She denies any symptoms prior to standing this morning or in the past few days; no fever, vomiting, diarrhea, pain, prior numbness, current or prior weakness. Did not have anything to eat or drink this morning. Related Data Home Medications Medication Instructions Recorded Confirmed albuterol sulfate 90 mcg/actuation 1 - 2 puff inhalation Q4H PRN 10/15/13 03/14/22 aerosol inhaler (ProAir HFA) ascorbic acid (vitamin C) 1,000 mg 1,000 mg PO DAILY 10/15/13 03/14/22 chewable tablet cholecalciferol (vitamin D3) 25 1,000 unit PO DAILY 10/15/13 03/14/22 mcg (1,000 unit) capsule epinephrine 0.3 mg/0.3 mL 0.3 mg (0.3 mL) IJ PRN #1 unit 04/24/14 03/14/22 injection, auto-injector (EpiPen 2-Dayo) esomeprazole magnesium 40 mg 40 mg PO DAILY 04/24/14 03/14/22 capsule,delayed release (Nexium) Medical Marijuania 1 PRN 04/13/16 11/02/21 levothyroxine 100 mcg tablet 125 mcg PO DAILY 03/04/19 03/14/22 vitamin B complex 1 cap PO DAILY 11/02/20 03/14/22 acetaminophen 500 mg capsule 1,000 mg PO Q8H PRN PRN #90 caps 11/18/20 03/14/22 calcium carbonate 333 mg-magnesium 1 tab PO DAILY 11/18/20 03/14/22 oxide 133 mg-zinc gluc 5 mg tablet hydrocodone 5 mg-acetaminophen 325 tab PO BID 12/15/21 mg tablet epinephrine 0.3 mg/0.3 mL 0.3 mg (0.3 mL) IM ONCE PRN 03/08/22 03/14/22 injection, auto-injector (EpiPen) anaphylaxis #2 ea Previous Rx's Medication Instructions Recorded epinephrine 0.3 mg/0.3 mL 0.3 mg (0.3 mL) IJ PRN #1 unit 04/24/14 injection, auto-injector (EpiPen 2-Dayo) acetaminophen 500 mg capsule 1,000 mg PO Q8H PRN PRN #90 caps 11/18/20 epinephrine 0.3 mg/0.3 mL 0.3 mg (0.3 mL) IM ONCE PRN 03/08/22 injection, auto-injector (EpiPen) anaphylaxis #2 ea Allergies Allergy/AdvReac Type Severity Reaction Status Date / Time aspirin Allergy Severe Anaphylaxsi Unverified 03/14/22 07:43 s venom-honey bee Allergy Anaphylaxsi Unverified 03/14/22 07:43 s mold AdvReac Severe Verified 03/14/22 07:43 oxycodone AdvReac Severe Nausea & Unverified 03/14/22 07:43 vomiting General Stated Complaint: Allergic GITA: 2 PFSH All Active Problems (Updated 03/14/22 @ 14:53 by Sandra Niño MD) Allergic reaction to bee sting (Acute) Allergic reaction (Acute) Hypokalemia (Acute) Hypomagnesemia (Acute) Chest pain (Acute) COVID (Acute) Tendonitis of long head of biceps brachii of right shoulder (Acute) De Quervain's tenosynovitis, right (Acute) Right wrist pain (Acute) Epicondylitis, lateral, right (Acute) Superior labrum [id number] (SLAP) tear of left shoulder (Acute) Calcific tendonitis of left shoulder (Acute) Biceps tendonitis on left (Acute) Carpal tunnel syndrome, left (Acute) S/P ECTR: 11/18/2020 Asthma (Acute 08/22/14) Chronic SI joint pain (Acute 08/22/14) Gastritis (Acute 04/13/16) Esophagitis (Acute) Small intestinal bacterial overgrowth (Acute) Chronic pain (Chronic) Hypothyroidism (Chronic) Chronic low back pain (Acute) Medical History CTS (carpal tunnel syndrome) Iron deficiency anemia Irregular menses Microcytic anemia 09/2013 Hct 28. Pt was taking NSAIDs for SI joint pain. EGD done- nl findings. Anemia resolved with stopping NSAIDs and supplemental iron. Sacroiliac joint dysfunction Surgical History EGD - IV Sedation 10/21/13 for eval of GI pain and microcytic anemia. Nl bx. EGD - MAC (04/13/16) History of back surgery herniated disk removed from lower back. 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 Female Reproductive History Menstrual control method: permanent sterilization Course Vital Signs Vital signs: Vital Signs Temperature 36.7 C 03/14/22 07:39 Pulse 94 H 03/14/22 07:39 Respiratory Rate 15 03/14/22 07:39 Blood Pressure 147/81 H 03/14/22 07:39 Pulse Oximetry 100 03/14/22 07:39 Temperature 36.7 C 03/14/22 07:39 Temperature Source Temporal Artery Scan 03/14/22 07:39 Pulse 94 H 03/14/22 07:39 Respiratory Rate 15 03/14/22 07:39 Respiratory Effort Non-Labored 03/14/22 07:43 Blood Pressure 147/81 H 03/14/22 07:39 Blood Pressure Position Supine 03/14/22 07:39 Pulse Oximetry 100 03/14/22 07:39 Oxygen Delivery Method Room Air 03/14/22 07:39 Oxygen Flow Rate 0 03/14/22 07:39 PAWSS Have you Been Recently Intoxicated or Drunk Within the Last 30 days?: No Have you Ever Experienced Previous Episodes of Alcohol Withdrawal?: No Have you ever Experienced Withdrawal Seizures?: No Have you ever Experienced Delirium Tremens(DT)s?: No Have you ever undergone Alcohol Rehabilitation Treatment (i.e, inpt ot outpatient treatment programs)?: No Have you ever Experienced Blackouts?: No Have you ever Combined Alcohol with other Downers within the last 90 days?: No Have you ever Combined Alcohol with any other Substance of Abuse during the last 90 days?: No Result: 0
--- NOTE | 2022-03-14 08:30 | RT.EKG_ITS ---
APPROVED REPORT Exam: Resting ECG Reason for Exam: CHEST PAIN Patient Location: E HR:74 bpm ECG Measurements Heart Rate 74 AXIS VT 148 P 57 QRSd 85 QRS 26 QT 432 T 10 QTc 481 Conclusion Sinus rhythm...normal P axis, V-rate 60- 99 sinus rhythm at 74, normal axis, ST depressions from prior improved, no STEMI, nondiagnostic EKG
[2022-03-14 08:44] LABS: HCT 39.8 % (36.0-46.0); HGB 12.7 g/dL (11.2-15.7); MCH 28.2 pg (27.0-33.0); MCHC 31.9 % (32.0-36.0); MCV 88 fL (80-95); MPV 10.9 fL (8.0-11.0); Platelet Count 398 10^3/uL (130-400); RDW 13.1 % (11.7-14.6); RDW-SD 43.1 fL; WBC 13.49 10^3/uL (4.4-10.8)
[2022-03-14 09:04] LABS: ALT 26 U/L (14-59); AST 18 U/L (15-37); Absolute Eosinophil Count 0.54 10^3/uL (0.0-0.7); Absolute Lymphocyte Count 6.61 10^3/uL (1.2-3.4); Absolute Monocyte Count 0.67 10^3/uL (0.1-0.8); Absolute Neutrophil Count 5.67 10^3/uL (1.2-6.7); Albumin 4.1 g/dL (3.4-5.0); Alkaline Phosphatase 59 U/L (46-116); Anion Gap 17.5 mmol/L (3-11); Atypical Lymphocytes % 7; BUN 10 mg/dL (7-18); Bilirubin, Total 0.6 mg/dL (0.2-1.0); CO2 22.5 mmol/L (21.0-32.0); Calcium 9.4 mg/dL (8.5-10.1); Chloride 100 mmol/L (98-107); Diff Comment Manual Differential; Estimated GFR 59.69 (mL/min/1.73m2); Glucose 141 mg/dL (74-106); Magnesium 1.6 mg/dL (1.8-2.4); RBC Morphology Normal; Sodium 140 mmol/L (136-145); Total Protein 7.4 g/dL (6.4-8.2); Troponin I < 50 ng/L (<or=60)
[2022-03-14 09:05] LABS: Potassium 2.5 mmol/L (3.5-5.1)
[2022-03-14] MEDS: MAGNESIUM SULFATE 2 GM/50 ML BAG IVPB (09:50)
[2022-03-14] MEDS: POTASSIUM CHLORIDE 20 MEQ/100 ML BAG 50 MEQ IVPB ×2 (09:51→11:41)
[2022-03-14 12:22] LABS: Troponin I < 50 ng/L (<or=60)
--- NOTE | 2022-03-14 12:47 | PDOC.ERCMPRO ---
- If Service Date Differs Date of service: 03/14/22 Time of Service: 12:48 Care Management Progress Note YSBIRT Screen: negative. Pt reports no substance use or mental health symptoms. Pt reports she uses medical marijuana for management of pain and inflammation and has a medical card.
[2022-03-14 14:20] LABS: Anion Gap 12.1 mmol/L (3-11); BUN 8 mg/dL (7-18); CO2 21.9 mmol/L (21.0-32.0); CREATININE 1.1 mg/dL (0.55-1.02); Calcium 8.5 mg/dL (8.5-10.1); Chloride 106 mmol/L (98-107); Estimated GFR 53.47 (mL/min/1.73m2); Glucose 130 mg/dL (74-106); Potassium 4.3 mmol/L (3.5-5.1); Sodium 140 mmol/L (136-145)
--- NOTE | 2022-03-14 15:06 | NUR.NOTE ---
Addendum entered by Kami Triplett 03/14/22 15:08: Referral faxed to PCP hypokalemia/chest pain; this Thurs or Mon this week. Original Note: Nursing Note: Request for Regular Exercise TReadmill stress test faxed to DI for chest pain. Instructions given to patient.
== END 2022-03-14 15:00 | disposition home or self-care (01) ==
PROVIDERS: Emergency Provider Student in an Organized Health Care Education/Training Program; PCP Nurse Practitioner Family
DX: T63.441A Toxic effect of venom of bees, accidental (unintentional), initial encounter (principal); E87.6 Hypokalemia; E83.42 Hypomagnesemia; R07.9 Chest pain, unspecified
CPT/HCPCS: 80048; 80053; 81025; 93005; 96361; 96365; 96366; 96368; 96375; 99284; 83735; 84484; 85025; 93010; J1200; J2930; J3480

== ENCOUNTER → 2022-03-17 01:38 | Outpatient (CLI) | payer MEDICAID, SELFPAY ==
--- NOTE | 2022-03-17 14:00 | ETT_ITS ---
APPROVED REPORT Exam: Exercise Treadmill Patient Location: Out-Patient Room/Bed: Stress Nurse: Glory Haskins RN Ordering Provider:GODFREY SIMMONS, Contact Number: [phone] BMI: 36.04 Baseline Rhythm: Sinus Rhythm Indications: Chest pain Medical History Medical History: Asthma. GERD. Chronic pain. Hypothyroidism Cardiac Medications: None Allergies: Aspirin. Honey bee. Oxycodone. Mold. Cardiac Risk Factors: Asthma. Previous Cardiac Procedures: None Pretest Chest Pain Characteristics: None Exercise History: Indeterminate Physical Disabilities: None Lung Sounds: clear to auscultation Heart Sounds: Regular Stress Test Details Test: Exercise stress testing was performed using a Reji protocol. Rest Stress HR Resting HR Supine: 56 bpm Max Heart Rate (APMHR): 174 bpm Resting HR Standin bpm Target HR (85% APMHR): 147 bpm Max HR Achieved: 162 bpm % of APMHR: 93 Recovery HR: 82 bpm HR response to stress: Normal HR response to stress BP Resting BP Supine: 118/70 mmHg Resting BP Standin/64 mmHg Max BP: 172/78 mmHg Recovery BP: 110/68 mmHg BP response to stress: Normal blood pressure response to stress. ECG Resting ECG: Sinus Rhythm Ectopy: None Stress ECG: Sinus Tachycardia ST Change: No significant ST segment changes noted Arrhythmia: None Recovery ECG: Sinus Rhythm Recovery ST Change: No significant ST segment changes noted Recovery Arrhythmia: None Clinical Reason for Termination: Fatigue, Dyspnea Stress Symptoms: Dyspnea, Dizziness Exercise duration: 9 min0 sec Highest Stage Reached: Stage 3: 3.4 mph at 14% grade. Exercise capacity: 10.16 METs Angina Score: None Rate Pressure Product: 16970 Stress ECG Conclusion 1. Resting electrocardiogram was within normal limits 2. The patient exercised on Reji protocol and completed a workload of 10.16 METS 3. Normal heart rate and blood pressure response to exercise. The patient achieved 93% of predicted heart rate for age 4. Electrocardiographic portion of the test was negative for myocardial ischemia Stress Test Summary STAGE Time (mins) Speed (mph) Grade (%) HR BP SpO2 SYMPTOMS METS Supine 56 118/70 Standing 65 118/64 1 3 1.7 10 103 128/80 4.5 2 6 2.5 12 130 160/72 7 3 9 3.4 14 160 172/78 SOB. Dizzyness 10 1 min recovery 102 170/64 SOB. Dizzyness subsided. 3 min recovery 92 164/70 6 min recovery 82 110/68
== END ==
PROVIDERS: PCP Nurse Practitioner Family; Visit Provider Student in an Organized Health Care Education/Training Program
DX: R07.9 Chest pain, unspecified (principal)
CPT/HCPCS: 93017

== ENCOUNTER 2022-03-23 10:05 | Outpatient (REF) | payer MEDICAID, SELFPAY ==
[2022-03-23 15:35] LABS: Abs Immature Grans 0.03 10^3/uL (0.0-0.06); Absolute Basophil Count 0.04 10^3/uL (0.0-0.2); Absolute Eosinophil Count 0.26 10^3/uL (0.0-0.7); Absolute Monocyte Count 0.59 10^3/uL (0.1-0.8); Absolute Neutrophil Count 4.48 10^3/uL (1.2-6.7); Basophils % 0.5; Eosinophils % 3.5; HCT 37.7 % (36.0-46.0); HGB 11.9 g/dL (11.2-15.7); Immature Grans % 0.4; MCH 28.3 pg (27.0-33.0); MCHC 31.6 % (32.0-36.0); MCV 90 fL (80-95); MPV 11.1 fL (8.0-11.0); Neutrophils % 60.6; Platelet Count 256 10^3/uL (130-400); RBC 4.21 10^6/uL (3.93-5.22); RDW 13.8 % (11.7-14.6); RDW-SD 44.7 fL
[2022-03-23 17:05] LABS: ALT 24 U/L (14-59); AST 19 U/L (15-37); Albumin 3.8 g/dL (3.4-5.0); Alkaline Phosphatase 49 U/L (46-116); Anion Gap 8.8 mmol/L (3-11); BUN 9 mg/dL (7-18); Bilirubin, Total 0.4 mg/dL (0.2-1.0); CO2 27.2 mmol/L (21.0-32.0); CREATININE 0.7 mg/dL (0.55-1.02); Chloride 106 mmol/L (98-107); Glucose 109 mg/dL (74-106); Magnesium 1.9 mg/dL (1.8-2.4); Potassium 4.2 mmol/L (3.5-5.1); Sodium 142 mmol/L (136-145)
== END 2022-03-23 10:06 | disposition home or self-care (01) ==
LOC: NCHCN 10:05
PROVIDERS: PCP Nurse Practitioner Family; Visit Provider Nurse Practitioner Family
DX: E87.6 Hypokalemia (principal); E83.42 Hypomagnesemia; F10.20 Alcohol dependence, uncomplicated
CPT/HCPCS: 80053; 83735; 85025

== ENCOUNTER 2023-02-12 20:02 | Emergency (ER) | payer MEDICAID, SELFPAY ==
[2023-02-12 20:05] VITALS: BP 146/93; PULSE 71; RESP 16; TEMP 36.8; O2SAT 100
--- NOTE | 2023-02-12 20:53 | ED.GENADUL_ITS ---
Discharge Plan Disposition Patient Disposition: Home Discharge Details Clinical Impression: Pain, dental Primary Care Provider: REGGIE BROWNLEE ED Provider: Mario Terrazas Home Meds and New Rx's Prescriptions: New levofloxacin 750 mg tablet 750 mg PO DAILY 7 Days Qty: 7 0RF metronidazole 500 mg tablet 500 mg PO TID 7 Days Qty: 21 0RF No Action vitamin B complex Capsule 1 cap PO DAILY albuterol sulfate [ProAir HFA] 8.5 GM HFA aerosol inhaler 1 - 2 puff Inhalation Q4H PRN ascorbic acid (vitamin C) 1,000 MG tablet,chewable 1,000 mg PO DAILY cholecalciferol (vitamin D3) 1,000 UNIT capsule 1,000 unit PO DAILY levothyroxine 100 mcg tablet 125 mcg PO DAILY esomeprazole magnesium [Nexium] 40 MG capsule,delayed release(DR/EC) 40 mg PO DAILY epinephrine [EpiPen 2-Dayo] 0.3 MG/0.3 ML auto-injector 0.3 mg IJ PRN Qty: 1 1RF Medical Marijufloresita 1 PRN Patient Comments: 09/30/16 pt reports she has [employer] card. Pt reports she uses 3-4 times a day prn. jw hydrocodone-acetaminophen 5-325 mg tablet PO BID Patient Comments: TAKE 1 TABLET BY MOUTH TWICE DAILY NEEDED FOR PAIN epinephrine [EpiPen] 0.3 mg/0.3 mL auto-injector 0.3 mg IM ONCE PRN (Reason: anaphylaxis) Qty: 2 0RF Rx Instructions: as a single dose; may repeat once calcium carb-mag ox-zinc gluc 333-133-5 mg Tablet 1 tab PO DAILY Patient Comments: started a Calcium, magnesium, zinc tablet.HE acetaminophen 500 mg capsule 1,000 mg PO Q8H PRN PRNQty: 90 0RF Discharge Instructions Instructions: Toothache (ED) Additional Instructions: Please follow-up with dentist. Please take medication as prescribed. Return to the emergency department for any worsening symptoms Medical Decision Making 47-year-old female presents with upper and lower left dental pain, evidence of multiple dental caries upper and lower molars, no periapical abscess, no deep space infection of head or neck; tolerating secretions normal voice. Afebrile nontoxic. Will provide local dental block upper and lower on the left, given progressive dental pain in the setting of dental caries we will start empiric antibiotics with levofloxacin and Flagyl given penicillin allergy. Patient will seek dental follow-up 21: 25 dental block to upper and lower jaw left side with great improvement of pain. Patient started on Levaquin and Flagyl. Home care instructions return precautions given HPI General Date/Time Provider Initiated Documentation: 02/12/23 20:42 . HPI Narrative: 47-year-old female presents with upper and lower dental discomfort over the past several days to weeks. Related Data Home Medications Medication Instructions Recorded Confirmed albuterol sulfate 90 mcg/actuation 1 - 2 puff inhalation Q4H PRN 10/15/13 03/14/22 aerosol inhaler (ProAir HFA) ascorbic acid (vitamin C) 1,000 mg 1,000 mg PO DAILY 10/15/13 03/14/22 chewable tablet cholecalciferol (vitamin D3) 25 1,000 unit PO DAILY 10/15/13 03/14/22 mcg (1,000 unit) capsule epinephrine 0.3 mg/0.3 mL 0.3 mg (0.3 mL) IJ PRN #1 unit 04/24/14 03/14/22 injection, auto-injector (EpiPen 2-Dayo) esomeprazole magnesium 40 mg 40 mg PO DAILY 04/24/14 03/14/22 capsule,delayed release (Nexium) Medical Marijuania 1 PRN 04/13/16 11/02/21 levothyroxine 100 mcg tablet 125 mcg PO DAILY 03/04/19 03/14/22 vitamin B complex 1 cap PO DAILY 11/02/20 03/14/22 acetaminophen 500 mg capsule 1,000 mg PO Q8H PRN PRN #90 caps 11/18/20 03/14/22 calcium carbonate 333 mg-magnesium 1 tab PO DAILY 11/18/20 03/14/22 oxide 133 mg-zinc gluc 5 mg tablet hydrocodone 5 mg-acetaminophen 325 tab PO BID 12/15/21 mg tablet epinephrine 0.3 mg/0.3 mL 0.3 mg (0.3 mL) IM ONCE PRN 03/08/22 03/14/22 injection, auto-injector (EpiPen) anaphylaxis #2 ea levofloxacin 750 mg tablet 750 mg PO DAILY 7 days #7 tabs 02/12/23 metronidazole 500 mg tablet 500 mg PO TID 7 days #21 tabs 02/12/23 Previous Rx's Medication Instructions Recorded epinephrine 0.3 mg/0.3 mL 0.3 mg (0.3 mL) IJ PRN #1 unit 04/24/14 injection, auto-injector (EpiPen 2-Dayo) acetaminophen 500 mg capsule 1,000 mg PO Q8H PRN PRN #90 caps 11/18/20 epinephrine 0.3 mg/0.3 mL 0.3 mg (0.3 mL) IM ONCE PRN 03/08/22 injection, auto-injector (EpiPen) anaphylaxis #2 ea levofloxacin 750 mg tablet 750 mg PO DAILY 7 days #7 tabs 02/12/23 metronidazole 500 mg tablet 500 mg PO TID 7 days #21 tabs 02/12/23 Allergies Allergy/AdvReac Type Severity Reaction Status Date / Time aspirin Allergy Severe Anaphylaxsi Unverified 02/12/23 20:10 s venom-honey bee Allergy Anaphylaxsi Unverified 02/12/23 20:10 s mold AdvReac Severe Verified 02/12/23 20:10 oxycodone AdvReac Severe Nausea & Unverified 02/12/23 20:10 vomiting General Stated Complaint: DentalOral GITA: 4 Review of Systems Narrative: Review of Systems Constitutional: negative Eyes: negative ENT: Dental pain Cardiovascular: negative Respiratory: negative Gastrointestinal: negative : negative Musculoskeletal: negative Skin: negative Neurologic: negative Psych: negative PFSH All Active Problems (Updated 02/12/23 @ 21:28 by Mario Terrazas MD) Pain, dental (Acute) COVID (Acute) Tendonitis of long head of biceps brachii of right shoulder (Acute) De Quervain's tenosynovitis, right (Acute) Right wrist pain (Acute) Epicondylitis, lateral, right (Acute) Superior labrum qwnibjkj-av-yndisvflt (SLAP) tear of left shoulder (Acute) Calcific tendonitis of left shoulder (Acute) Biceps tendonitis on left (Acute) Carpal tunnel syndrome, left (Acute) S/P ECTR: 11/18/2020 Asthma (Acute 08/22/14) Chronic SI joint pain (Acute 08/22/14) Gastritis (Acute 04/13/16) Esophagitis (Acute) Small intestinal bacterial overgrowth (Acute) Chronic pain (Chronic) Hypothyroidism (Chronic) Chronic low back pain (Acute) Medical History CTS (carpal tunnel syndrome) Iron deficiency anemia Irregular menses Microcytic anemia 09/2013 Hct 28. Pt was taking NSAIDs for SI joint pain. EGD done- nl findings. Anemia resolved with stopping NSAIDs and supplemental iron. Sacroiliac joint dysfunction Surgical History EGD - IV Sedation 10/21/13 for eval of GI pain and microcytic anemia. Nl bx. EGD - MAC (04/13/16) History of back surgery herniated disk removed from lower back. 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 Female Reproductive History Menstrual control method: permanent sterilization Exam Narrative Exam Narrative: Physical Examination General: alert, awake, cooperative, resting comfortably, no acute distress HEENT: No evidence of periapical abscess, patient does have multiple dental caries upper and lower molars; no submandibular or sublingual or submental induration Neck: supple, trachea midline; full ROM Chest: normal to inspection Course Vital Signs Vital signs: Vital Signs Temperature 36.8 C 02/12/23 20:05 Pulse 71 02/12/23 20:05 Respiratory Rate 16 02/12/23 20:05 Blood Pressure 146/93 H 02/12/23 20:05 Pulse Oximetry 100 02/12/23 20:05 Temperature 36.8 C 02/12/23 20:05 Pulse 71 02/12/23 20:05 Respiratory Rate 16 02/12/23 20:05 Respiratory Effort Normal 02/12/23 20:08 Blood Pressure 146/93 H 02/12/23 20:05 Blood Pressure Position Sitting 02/12/23 20:05 Pulse Oximetry 100 02/12/23 20:05 Oxygen Delivery Method Room Air 02/12/23 20:05 Oxygen Flow Rate 0 02/12/23 20:05 Pain Level 10 02/12/23 20:08
[2023-02-12] MEDS: levoFLOXacin 500 MG, levoFLOXacin 250 MG 750 MG PO (21:00)
[2023-02-12] MEDS: metroNIDAZOLE 500 MG TAB PO (21:00)
[2023-02-12] MEDS: Bupivacaine 0.25% Pres-Free 10 ML VIAL IJ (21:05)
[2023-02-12 21:40] VITALS: BP 127/78; PULSE 57; RESP 16; O2SAT 96
== END 2023-02-12 21:41 | disposition home or self-care (01) ==
PROVIDERS: Emergency Provider Emergency Medicine; PCP Nurse Practitioner Family
DX: K08.89 Other specified disorders of teeth and supporting structures (principal)
CPT/HCPCS: 99283; 99284

== ENCOUNTER 2023-02-13 06:03 | Emergency (ER) | payer MEDICAID, SELFPAY ==
[2023-02-13 06:05] VITALS: BP 156/89; PULSE 81; RESP 22; TEMP 36.5; O2SAT 100
--- NOTE | 2023-02-13 06:23 | ED.GENADUL_ITS ---
Discharge Plan Disposition Patient Disposition: Home Condition: Improving Discharge Details Chief Complaint: DentalOral Clinical Impression: Pain, dental Primary Care Provider: REGGIE BROWNLEE ED Provider: Mario Terrazas Home Meds and New Rx's Prescriptions: No Action vitamin B complex Capsule 1 cap PO DAILY albuterol sulfate [ProAir HFA] 8.5 GM HFA aerosol inhaler 1 - 2 puff Inhalation Q4H PRN ascorbic acid (vitamin C) 1,000 MG tablet,chewable 1,000 mg PO DAILY cholecalciferol (vitamin D3) 1,000 UNIT capsule 1,000 unit PO DAILY levothyroxine 100 mcg tablet 125 mcg PO DAILY esomeprazole magnesium [Nexium] 40 MG capsule,delayed release(DR/EC) 40 mg PO DAILY epinephrine [EpiPen 2-Dayo] 0.3 MG/0.3 ML auto-injector 0.3 mg IJ PRN Qty: 1 1RF Medical Marijuania 1 PRN Patient Comments: 09/30/16 pt reports she has medical [employer] card. Pt reports she uses 3-4 times a day prn. jw hydrocodone-acetaminophen 5-325 mg tablet PO BID Patient Comments: TAKE 1 TABLET BY MOUTH TWICE DAILY NEEDED FOR PAIN epinephrine [EpiPen] 0.3 mg/0.3 mL auto-injector 0.3 mg IM ONCE PRN (Reason: anaphylaxis) Qty: 2 0RF Rx Instructions: as a single dose; may repeat once levofloxacin 750 mg tablet 750 mg PO DAILY 7 Days Qty: 7 0RF metronidazole 500 mg tablet 500 mg PO TID 7 Days Qty: 21 0RF calcium carb-mag ox-zinc gluc 333-133-5 mg Tablet 1 tab PO DAILY Patient Comments: started a Calcium, magnesium, zinc tablet.HE acetaminophen 500 mg capsule 1,000 mg PO Q8H PRN PRNQty: 90 0RF Discharge Instructions Instructions: Toothache (ED) Medical Decision Making Recurrent dental pain. Readministered bupivacaine inferior alveolar block and periapical block. No evidence of deep space infection of head or neck. Patient has been given a prescription for levofloxacin and Flagyl given metal allergies. Will seek urgent dental follow-up HPI General Date/Time Provider Initiated Documentation: 02/13/23 06:23 . HPI Narrative: Recurrent dental pain Related Data Home Medications Medication Instructions Recorded Confirmed albuterol sulfate 90 mcg/actuation 1 - 2 puff inhalation Q4H PRN 10/15/13 03/14/22 aerosol inhaler (ProAir HFA) ascorbic acid (vitamin C) 1,000 mg 1,000 mg PO DAILY 10/15/13 03/14/22 chewable tablet cholecalciferol (vitamin D3) 25 1,000 unit PO DAILY 10/15/13 03/14/22 mcg (1,000 unit) capsule epinephrine 0.3 mg/0.3 mL 0.3 mg (0.3 mL) IJ PRN #1 unit 04/24/14 03/14/22 injection, auto-injector (EpiPen 2-Dayo) esomeprazole magnesium 40 mg 40 mg PO DAILY 04/24/14 03/14/22 capsule,delayed release (Nexium) Medical Marijuania 1 PRN 04/13/16 11/02/21 levothyroxine 100 mcg tablet 125 mcg PO DAILY 03/04/19 03/14/22 vitamin B complex 1 cap PO DAILY 11/02/20 03/14/22 acetaminophen 500 mg capsule 1,000 mg PO Q8H PRN PRN #90 caps 11/18/20 03/14/22 calcium carbonate 333 mg-magnesium 1 tab PO DAILY 11/18/20 03/14/22 oxide 133 mg-zinc gluc 5 mg tablet hydrocodone 5 mg-acetaminophen 325 tab PO BID 12/15/21 mg tablet epinephrine 0.3 mg/0.3 mL 0.3 mg (0.3 mL) IM ONCE PRN 03/08/22 03/14/22 injection, auto-injector (EpiPen) anaphylaxis #2 ea levofloxacin 750 mg tablet 750 mg PO DAILY 7 days #7 tabs 02/12/23 metronidazole 500 mg tablet 500 mg PO TID 7 days #21 tabs 02/12/23 Previous Rx's Medication Instructions Recorded epinephrine 0.3 mg/0.3 mL 0.3 mg (0.3 mL) IJ PRN #1 unit 04/24/14 injection, auto-injector (EpiPen 2-Dayo) acetaminophen 500 mg capsule 1,000 mg PO Q8H PRN PRN #90 caps 11/18/20 epinephrine 0.3 mg/0.3 mL 0.3 mg (0.3 mL) IM ONCE PRN 03/08/22 injection, auto-injector (EpiPen) anaphylaxis #2 ea levofloxacin 750 mg tablet 750 mg PO DAILY 7 days #7 tabs 02/12/23 metronidazole 500 mg tablet 500 mg PO TID 7 days #21 tabs 02/12/23 Allergies Allergy/AdvReac Type Severity Reaction Status Date / Time aspirin Allergy Severe Anaphylaxsi Unverified 02/12/23 20:10 s venom-honey bee Allergy Anaphylaxsi Unverified 02/12/23 20:10 s mold AdvReac Severe Verified 02/12/23 20:10 oxycodone AdvReac Severe Nausea & Unverified 02/12/23 20:10 vomiting General Stated Complaint: DentalOral GITA: 4 Review of Systems Narrative: Dental pain PFSH All Active Problems (Updated 02/13/23 @ 06:25 by Mario Terrazas MD) Pain, dental (Acute) Pain, dental (Acute) COVID (Acute) Tendonitis of long head of biceps brachii of right shoulder (Acute) De Quervain's tenosynovitis, right (Acute) Right wrist pain (Acute) Epicondylitis, lateral, right (Acute) Superior labrum imffznrh-yq-zepwxxumy (SLAP) tear of left shoulder (Acute) Calcific tendonitis of left shoulder (Acute) Biceps tendonitis on left (Acute) Carpal tunnel syndrome, left (Acute) S/P ECTR: 11/18/2020 Asthma (Acute 08/22/14) Chronic SI joint pain (Acute 08/22/14) Gastritis (Acute 04/13/16) Esophagitis (Acute) Small intestinal bacterial overgrowth (Acute) Chronic pain (Chronic) Hypothyroidism (Chronic) Chronic low back pain (Acute) Medical History CTS (carpal tunnel syndrome) Iron deficiency anemia Irregular menses Microcytic anemia 09/2013 Hct 28. Pt was taking NSAIDs for SI joint pain. EGD done- nl findings. Anemia resolved with stopping NSAIDs and supplemental iron. Sacroiliac joint dysfunction Surgical History EGD - IV Sedation 10/21/13 for eval of GI pain and microcytic anemia. Nl bx. EGD - MAC (04/13/16) History of back surgery herniated disk removed from lower back. 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 Female Reproductive History Menstrual control method: permanent sterilization Exam Narrative Exam Narrative: Pain along lower teeth, no evidence of periapical abscess or deep space infection Course Vital Signs Vital signs: Vital Signs Temperature 36.5 C 02/13/23 06:05 Pulse 81 02/13/23 06:05 Respiratory Rate 22 02/13/23 06:05 Blood Pressure 156/89 H 02/13/23 06:05 Pulse Oximetry 100 02/13/23 06:05 Temperature 36.5 C 02/13/23 06:05 Temperature Source Temporal Artery Scan 02/13/23 06:05 Pulse 81 02/13/23 06:05 Respiratory Rate 22 02/13/23 06:05 Respiratory Effort Normal 02/13/23 06:08 Blood Pressure 156/89 H 02/13/23 06:05 Blood Pressure Position Sitting 02/13/23 06:05 Pulse Oximetry 100 02/13/23 06:05 Oxygen Delivery Method Room Air 02/13/23 06:05 Oxygen Flow Rate 0 02/13/23 06:05 Pain Level 10 02/13/23 06:05 PAWSS Have you Been Recently Intoxicated or Drunk Within the Last 30 days?: No Have you Ever Experienced Previous Episodes of Alcohol Withdrawal?: No Have you ever Experienced Withdrawal Seizures?: No Have you ever Experienced Delirium Tremens(DT)s?: No Have you ever undergone Alcohol Rehabilitation Treatment (i.e, inpt ot outpatient treatment programs)?: No Have you ever Experienced Blackouts?: No Have you ever Combined Alcohol with other Downers within the last 90 days?: No Have you ever Combined Alcohol with any other Substance of Abuse during the last 90 days?: No Positive Blood Alcohol level on Presentation? [PCS.BAL]: No Evidence of Increased Autonomic Activity (i.e. HR>120, tremor, sweating, agitation, nausea)?: No Result: 0
== END 2023-02-13 06:28 | disposition home or self-care (01) ==
LOC: ER 06:30
PROVIDERS: Emergency Provider Emergency Medicine; PCP Nurse Practitioner Family
DX: R68.84 Jaw pain (principal)
CPT/HCPCS: 99283; 99284

== ENCOUNTER 2023-04-19 15:25 | Outpatient (REF) | payer MEDICAID, SELFPAY ==
[2023-04-19 16:35] LABS: Abs Immature Grans 0.04 10^3/uL (0.0-0.06); Absolute Basophil Count 0.05 10^3/uL (0.0-0.2); Absolute Eosinophil Count 0.33 10^3/uL (0.0-0.7); Absolute Lymphocyte Count 2.16 10^3/uL (1.2-3.4); Absolute Monocyte Count 0.64 10^3/uL (0.1-0.8); Absolute Neutrophil Count 4.15 10^3/uL (1.2-6.7); Basophils % 0.7; Eosinophils % 4.5; HCT 41.7 % (36.0-46.0); Immature Grans % 0.5; Lymphocytes % 29.3; MCH 31.8 pg (27.0-33.0); MCHC 33.6 % (32.0-36.0); MCV 95 fL (80-95); MPV 11.4 fL (8.0-11.0); Monocytes % 8.7; Neutrophils % 56.3; Platelet Count 231 10^3/uL (130-400); RDW 12.1 % (11.7-14.6); RDW-SD 42.3 fL; WBC 7.37 10^3/uL (4.4-10.8)
[2023-04-19 17:25] LABS: ALT 26 U/L (14-59); AST 17 U/L (15-37); Albumin 3.9 g/dL (3.4-5.0); Alkaline Phosphatase 51 U/L (46-116); Anion Gap 7.6 mmol/L (3-11); BUN 11 mg/dL (7-18); Bilirubin, Total 0.4 mg/dL (0.2-1.0); CO2 27.4 mmol/L (21.0-32.0); CREATININE 0.7 mg/dL (0.55-1.02); Calculated LDL 161 mg/dL (<100); Chloride 103 mmol/L (98-107); Cholesterol 252 mg/dL (<200); Estimated GFR 107.28 (mL/min/1.73m2); Ferritin 61 ng/mL (8-252); Glucose 98 mg/dL (74-106); HDL Cholesterol 44 mg/dL (40-60); Iron 66 ug/dL (50-170); Magnesium 1.7 mg/dL (1.8-2.4); Potassium 3.9 mmol/L (3.5-5.1); Sodium 138 mmol/L (136-145); TSH (W/Ref FT4) 0.89 uIU/mL (0.36-3.74); Total Iron Binding Capacity 413 ug/dL (250-450); Total Protein 6.8 g/dL (6.4-8.2); Transferrin Sat 16 % (15-50); Triglyceride 237 mg/dL (<150)
[2023-04-19 17:32] LABS: Vitamin D 25 Total 32.1 ng/mL (30-100)
== END 2023-04-19 15:26 | disposition home or self-care (01) ==
LOC: NCHCN 15:25
PROVIDERS: PCP Nurse Practitioner Family; Visit Provider Nurse Practitioner Family
DX: Z51.81 Encounter for therapeutic drug level monitoring (principal); Z76.0 Encounter for issue of repeat prescription; G89.29 Other chronic pain; K21.9 Gastro-esophageal reflux disease without esophagitis; Z86.2 Personal history of diseases of the blood and blood-forming organs and certain disorders involving the immune mechanism; E03.9 Hypothyroidism, unspecified; E87.6 Hypokalemia; E83.42 Hypomagnesemia
CPT/HCPCS: 80053; 80061; 82306; 82728; 83540; 83550; 83735; 84443; 85025

== ENCOUNTER 2023-10-04 15:53 | Outpatient (CLI) | payer OTHER, SELFPAY ==
--- NOTE | 2023-10-04 13:45 | DI.RAD_ITS ---
Exam(s) XR SHOULDER LT COMPLETE 2+V EXAM: XR SHOULDER LT COMPLETE 2+V CLINICAL HISTORY: LEFT SHOULDER PAIN. TECHNIQUE: 2D digital imaging was performed of the left shoulder. Two images were obtained. Grashe y and axillary views were obtained. COMPARISON: CR XR SHOULDER LT COMPLETE 2+V from 11/27/2020 FINDINGS: BONES: No acute fracture is present. No bony destructive lesion is seen. JOINTS: No dislocation present. There is narrowing of the glenohumeral joint. The acromioclavicular joint appears grossly unremarkable. SOFT TISSUE: The lung najera are clear. There are densities adjacent to the head of the humerus whic h may reflect calcific tendinitis. IMPRESSION: There is narrowing of the glenohumeral joint. DATA REPOSITORY: RADIATION DOSE DELIVERED:
== END 2023-10-04 15:54 | disposition home or self-care (01) ==
LOC: DIORS 15:53
PROVIDERS: PCP Nurse Practitioner Family; Visit Provider Student in an Organized Health Care Education/Training Program
DX: M25.512 Pain in left shoulder (principal)
CPT/HCPCS: 73030

== ENCOUNTER → 2023-11-06 01:40 | Outpatient (CLI) | payer OTHER, SELFPAY ==
--- NOTE | 2023-11-06 08:15 | DI.MRI_ITS ---
Exam(s) MR UPPER JOINT LT WO EXAM: MR UPPER JOINT LT WO CLINICAL HISTORY: L SHOULDER PAIN,TENDONITIS,SLAP TEAR,M75.21,S43.432A. TECHNIQUE: Multiplanar multisequence MRI was performed. COMPARISON: Plain films 04 October 2023 FINDINGS: Exam is limited by motion. BONES: No evidence of fracture or contusion. JOINTS:The acromioclavicular joint is normal. The glenohumeral joint shows cartilage thinning. Minim al fluid. TENDONS: Supraspinatus: Abnormal thickening and edema. No focal tear. Infraspinatus: Calcifications seen adjacent or within distal infraspinatus tendon. No evidence of te ndon tear. Subscapularis: Unremarkable. Teres Minor: Unremarkable. Biceps and [place]: Unremarkable. MUSCLES: Unremarkable. GLENOID LABRUM: No gross tear. Limited evaluation due to motion. SOFT TISSUES: Unremarkable. OTHER: Subacromial and subdeltoid bursae shows small amount of fluid.. Small amount of fluid in sub coracoid bursa. IMPRESSION: Limited exam due to motion. Tendinosis of the supraspinatus. Calcifications within or adjacent to the distal infraspinatus tendon. DATA REPOSITORY:
== END ==
PROVIDERS: PCP Nurse Practitioner Family; Visit Provider Student in an Organized Health Care Education/Training Program
DX: S43.432A Superior glenoid labrum lesion of left shoulder, initial encounter; X58.XXXA Exposure to other specified factors, initial encounter
CPT/HCPCS: 73221

== ENCOUNTER 2024-01-11 07:50 | Day surgery (SDC) | payer OTHER, SELFPAY ==
[2024-01-11] VITALS (30 sets, daily range): BP systolic 102–138; BP diastolic 52–78; PULSE 55–77; RESP 9–19; TEMP 36.5–36.8; O2SAT 92–100; BMI 28.8
--- NOTE | 2024-01-11 06:49 | W.PM.OP ---
Date of service: 01/11/24 Time of Service: 12:00 Operative Note Operative Note DATE OF PROCEDURE: 01/11/24 PRE-OP DIAGNOSIS: Left: 1. Glenohumeral chondromalacia 2. LHB tendinopathy 3. Bursitis 4. SLAP tear 5. AC joint pain POST-OP DIAGNOSIS: same PROCEDURE: Left: 1. Arthroscopic distal clavicle excision, CPT# 81691. This involved arthroscopically exposing the underside of the acromioclavicular joint, smoothing out bone spurs, and removing a few millimeters of the distal clavicle so there was no bone left engaging the acromion. 2. Arthroscopic biceps tenodesis, CPT# 14810. This involved arthroscopically suturing and reattaching the long head of the biceps tendon to the proximal humerus at the superior margin of the bicipital groove with a screw at the correct tension. 3. Extensive debridement, CPT# 82932. This involved using arthroscopic hand instruments, power instruments, and radiofrequency instruments to release the long head of the biceps tendon and debride areas of labral tearing, synovitis, release anterior capsule, release [facility] L, debride humeral head and glenoid chondromalacia working within the glenohumeral joint anteriorly, superiorly and posteriorly. 4. Subacromial decompression with partial acromioplasty, CPT# 23777. This involved using arthroscopic power instruments and a radiofrequency wand to complete a bursectomy and smooth the undersurface of the acromion. The assistant scientist was medically required in order to help assist in techniques above, which require positioning the arm, holding the arthroscope, and manipulating multiple instruments and sutures at the same time. This cannot be done without the help of an experienced assistant scientist. SURGEON: Chintan Servin JOINERS SUPERVISOR: Nathan Jaquez ANESTHESIA TYPE: Local By Surgeon, General LMA/ETT and Primary Nerve Block Refer to Anesthesia Record ESTIMATED BLOOD LOSS: 5 PATHOLOGY: none sent COMPLICATIONS: None Patient was transported to: PACU Patient's condition: stable Implants: Arthrex: 4.75mm SwiveLocks x 1 Indications: The patient was diagnosed with the above conditions and appropriately indicated for surgical intervention. Please see complete medical record for details. Findings: Exam under anesthesia: Moderately limited external rotation about 30 degrees, largely full internal and forward elevation. No instability. Glenohumeral joint: Significant anterior rotator interval adhesions and synovitis. Difficult to visualize subscapularis within anterior capsular contracture. Intact once exposed. Long head biceps injection and SLAP tear. Diminutive posterior labrum. Diffuse anterior labral fraying tearing. Diffuse humeral head glenoid moderate grade chondromalacia with some central glenoid and superior humeral head unstable cartilage flaps. Mild to moderate articular sided supraspinatus central tearing. Subacromial space: Moderate bursitis, inflammatory changes at the AC joint without any significant byho-bj-xipy impingement. Bursal rotator cuff apparent only healthy and intact. Procedure Description: In the operating room, general anesthesia was induced. Bilateral shoulders were examined. The patient was positioned in the beachchair position. All bony prominences were well-padded. Preoperative antibiotics were administered. The shoulder was prepped and draped in the usual sterile fashion. The correct patient, procedure, and side of the procedure were all verified prior to incision. Starting through the posterior portal a standard complete diagnostic arthroscopy was performed of the glenohumeral joint including inspection of the long head of the biceps, anterior and superior labrum, subscapularis tendon, supraspinatus and infraspinatus tendons, and axillary recess. The glenoid and humeral head cartilage as well as the posterior labrum were inspected from an anterior viewing portal. Significant findings and interventions noted above. An all-arthroscopic suprapectoral biceps tenodesis was performed through an anterior portal using a Loop N Tack method with a SutureTape FiberLink cinched around and through the tendon. The biceps was tenotomized from the labrum and fixated with a suture anchor at the superior margin of the bicipital groove. The extra knotless repair suture loop was then passed around the stump and then back through the anchor eyelet mechanism tensioned over the repair and additional fixation strength. The debridement was completed with the biceps out of the way including debridement of the partial articular supraspinatus rotator cuff tear to a stable margin without exposing any significant amount of the greater tuberosity footprint. Arthroscopic scissors shaver and radiofrequency ablator were used to release the [facility] L and released the anterior capsule and adhesions and contracture from the subscapularis. Gentle external rotation manipulation confirmed restored full external rotation. Central glenoid and superior humeral head unstable cartilage flaps were probed and lightly debrided to more appropriate margin. Starting through the posterior portal, the arthroscope was directed into the subacromial space. A lateral 50 yard line lateral portal was created. A combination of power instruments and a radiofrequency ablator were used to debride bursitis anteriorly, posteriorly, and laterally as well as expose and smooth bone spurring on the undersurface of the acromion. The coracoacromial ligament was partially released. The bursectomy was completed viewing laterally and working from posteriorly and the rotator cuff was thoroughly inspected with findings noted above. The anterior portal was redirected towards the undersurface of the AC joint. A shaver and electrocautery device were used to clear soft tissue from the undersurface of the AC joint. The distalmost few millimeters of the distal clavicle was then removed and smoothed. Care was takenl to ensure that proper amount of bone was removed and there was no engaging bone left behind especially superiorly. The shoulder was drained of arthroscopic fluid. All portal sites were copiously irrigated. These incisions were closed using 3-0 Monocryl in a buried fashion and then covered with Mastisol, Steri-Strips, Xeroform, dry gauze, and ABDs. The dressings were covered and secured with Medipore tape. The operative extremity was placed into a sling for immobilization. The patient awoke from anesthesia without complication and was transferred to the recovery room in a stable condition.
--- NOTE | 2024-01-11 07:23 | W.PM.DSUDISC ---
Date of service: 01/11/24 Time of Service: 13:00 Discharge Plan Disposition Patient Disposition: Home Condition: Stable Discharge Details Attending Provider: Chintan Servin Primary Care Provider: REGGIE BROWNLEE Home Meds and New Rx's Prescriptions: New naproxen 250 mg tablet 250 - 500 mg PO BID PRN (Reason: Moderate pain) Qty: 30 0RF Continued vitamin B complex Capsule 1 cap PO DAILY albuterol sulfate [ProAir HFA] 8.5 GM HFA aerosol inhaler 1 - 2 puff Inhalation Q4H PRN ascorbic acid (vitamin C) 1,000 MG tablet,chewable 1,000 mg PO DAILY cholecalciferol (vitamin D3) 1,000 UNIT capsule 1,000 unit PO DAILY levothyroxine 100 mcg tablet 125 mcg PO DAILY ferrous sulfate 325 mg (65 mg iron) tablet 325 mg PO BID esomeprazole magnesium [Nexium] 40 MG capsule,delayed release(DR/EC) 40 mg PO DAILY epinephrine [EpiPen 2-Dayo] 0.3 MG/0.3 ML auto-injector 0.3 mg IJ PRN Qty: 1 1RF Medical Marijuania 1 PRN Patient Comments: 09/30/16 pt reports she has medical marijuania card. Pt reports she uses 3-4 times a day prn. jw hydrocodone-acetaminophen 5-325 mg tablet 1 tab PO BID PRN Patient Comments: TAKE 1 TABLET BY MOUTH TWICE DAILY NEEDED FOR PAIN calcium carb-mag ox-zinc gluc 333-133-5 mg Tablet 1 tab PO DAILY Patient Comments: started a Calcium, magnesium, zinc tablet.HE acetaminophen 500 mg capsule 1,000 mg PO Q8H PRN PRNQty: 90 0RF Discharge Instructions Additional Instructions: Surgery: Left shoulder arthroscopy with extensive debridement (including anterior capsular release), biceps tenodesis, subacromial decompression, and distal clavicle excision. Activity: You should gradually increase range of motion motion and use of your shoulder. You may use your shoulder for all regular activities while protecting biceps repair. Avoid any weighted elbow flexion or resisted supination for 6-8 weeks. No heavy lifting, reaching overhead, or lifting away from body for approximately 2-3 months. You may use the sling whenever you are out of the house for a few weeks. At home it is best to remove the sling and rest the arm on a pillow at your side or support the operative side with your other hand. A physical therapy prescription will be sent electronically to start in about 3 weeks. Prescriptions: Naproxen 250 mg take 1-2 every 12 hours with a meal as needed for moderate pain You may use zmvx-cop-cjqdzzs Tylenol (acetaminophen) as needed for mild pain. These pain medications may be taken all at once or in different combinations as needed. Also, recommend Colace (docusate) as a stool softener as surgery and pain medicine cause constipation. You may try lene-ppv-xxjaubk diphenhydramine (Benadryl) 25-50 mg nightly as a sleep aid Dressings: Remove shoulder bandage after 3 days. Leave the sticky Steri-Strips in place until they fall off or remove them after you shower. Cover the incisions with Band-Aids or leave them open to air. You may shower after 5 days. Follow-up: 10-[address] Servin You may take off the leg compression stockings this evening at home. You may also leave them on a few days longer if you have a history of leg swelling or edema. Let us know right away if you develop any redness, drainage, fevers, chest pain, or trouble breathing. Do not drink alcohol or drive for at least 24 hours after anesthesia. Please call the office during business hours with any questions or concerns. Stand Alone Forms: Anesthesia Discharge Inst., Anes.Sugammadex Interaction, Anes.Nerve Block Instructions, Oneyda Luque (DSU) Discharge Orders Discharge Orders: Discharge Order (Routine); Ordered 01/11/24 Ordered By: Chintan Servin DS: Diagnosis Discharge Diagnosis (1) Chondromalacia, left shoulder: Status: Acute
[2024-01-11] MEDS: Lactated Ringers 1,000 ML 30 ML IV (09:01)
--- NOTE | 2024-01-11 09:15 | ANES.PREOP_ITS ---
General Info Date of Service Date Performed: 01/11/24 Height: 5 ft 6 in Weight: 81 kg Body Mass Index (BMI): 28.8 Surgical Procedure: Operation Date: 01/11/24 11:10 Proposed Procedure Side Surgeon p Shoulder Arthroscopy w/Extensive Debridement, Biceps Tenodesis, Subacromial Decompression, Distal Clavicle Excision Left Chintan Servin MD Meds Allergies and Home Medications Allergies Allergy/AdvReac Type Severity Reaction Status Date / Time aspirin Allergy Severe Anaphylaxsi Verified 01/11/24 08:02 s Penicillins Allergy Severe Anaphylaxis Verified 01/11/24 08:02 venom-honey bee Allergy Anaphylaxsi Verified 01/11/24 08:02 s mold AdvReac Severe Other (See Verified 01/11/24 08:02 Comment) oxycodone AdvReac Severe Nausea & Verified 01/11/24 08:02 vomiting Home Medication Medication Instructions Recorded albuterol sulfate 90 mcg/actuation 1 - 2 puff inhalation Q4H PRN 10/15/13 aerosol inhaler (ProAir HFA) ascorbic acid (vitamin C) 1,000 mg 1,000 mg PO DAILY 10/15/13 chewable tablet cholecalciferol (vitamin D3) 25 1,000 unit PO DAILY 10/15/13 mcg (1,000 unit) capsule epinephrine 0.3 mg/0.3 mL 0.3 mg (0.3 mL) IJ PRN #1 unit 04/24/14 injection, auto-injector (EpiPen 2-Dayo) esomeprazole magnesium 40 mg 40 mg PO DAILY 04/24/14 capsule,delayed release (Nexium) Medical [facility] 1 PRN 04/13/16 levothyroxine 100 mcg tablet 125 mcg PO DAILY 03/04/19 vitamin B complex 1 cap PO DAILY 11/02/20 acetaminophen 500 mg capsule 1,000 mg (2 x 500 mg) PO Q8H PRN 11/18/20 PRN #90 caps calcium carbonate 333 mg-magnesium 1 tab PO DAILY 11/18/20 oxide 133 mg-zinc gluc 5 mg tablet hydrocodone 5 mg-acetaminophen 325 1 tab PO BID PRN 12/15/21 mg tablet ferrous sulfate 325 mg (65 mg 325 mg PO BID 09/22/23 iron) tablet Current Visit Medications: Current Medications Generic Name Dose Route Start Last Admin Trade Name Freq PRN Reason Stop Dose Admin Ringer's Solution 1,000 mls @ 30 mls/hr 01/11/24 06:00 01/11/24 09:01 IV 02/09/24 23:59 30 mls/hr INFUSION XIOMARA Administration Tranexamic Acid/Sodium Chloride 1,000 mg in 100 mls @ 600 mls/hr 01/11/24 06:00 IVPB 01/11/24 16:00 PREOP XIOMARA Cefazolin Sodium/Dextrose 2 gm in 50 mls @ 100 mls/hr 01/11/24 06:00 Ancef Duplex IVPB 01/11/24 16:00 PREOP XIOMARA IV Miscellaneous Supplies 1 each 01/11/24 06:00 Iv Access IV 02/09/24 23:59 DIRECTED XIOMARA Sodium Chloride 0 ml 01/11/24 06:00 Normal Saline Flush 10 Ml Syr IV 02/09/24 23:59 PRN PRN Sodium Chloride 0 ml 01/11/24 06:00 Normal Saline 10 Ml Vial IJ 02/09/24 23:59 DIRECTED PRN Sterile Water 0 ml 01/11/24 06:00 Water,Injection,Sterile 10 Ml Vial IJ 02/09/24 23:59 DIRECTED PRN PFSH Active Problems Active Problems: Problem Status Onset Code Chondromalacia, left shoulder M94.212 Pain in left acromioclavicular joint M25.512 Tendinopathy of left biceps tendon M67.922 COVID U07.1 Tendonitis of long head of biceps brachii of right shoulder ~09/12/23 M75.21 De Quervain's tenosynovitis, right M65.4 Right wrist pain M25.531 Epicondylitis, lateral, right M77.11 Superior labrum rbjsscqk-ih-cyhywbefi (SLAP) tear of left shoulder ~09/12/23 S43.432A Biceps tendonitis on left M75.22 Carpal tunnel syndrome, left G56.02 Asthma 08/22/14 J45.909 Chronic SI joint pain 08/22/14 M53.3, G89.29 Gastritis 04/13/16 K29.70 Esophagitis K20.9 Small intestinal bacterial overgrowth K63.89 Chronic pain G89.29 Hypothyroidism E03.9 Chronic low back pain M54.5, G89.29 Medical History Medical History Calcific tendonitis of left shoulder Iron deficiency anemia CTS (carpal tunnel syndrome) Microcytic anemia 09/2013 Hct 28. Pt was taking NSAIDs for SI joint pain. EGD done- nl findings. Anemia resolved with stopping NSAIDs and supplemental iron. Sacroiliac joint dysfunction Irregular menses Medical History Comments:: Pt states when she had an endoscopy, she started waking up Surgical History Surgical History History of back surgery herniated disk removed from lower back. Ligation of fallopian tube (~1999) Tonsillectomy and adenoidectomy (~1986) EGD - MAC (04/13/16) EGD - IV Sedation 10/21/13 for eval of GI pain and microcytic anemia. Nl bx. Tobacco Smoking/Tobacco Use Status: Former Tobacco Use Alcohol Alcohol Intake: current Alcohol intake frequency: 0-2 drinks per day Alcohol typ e: hard liquor Substance Use Substance use: Daily Substance use type: marijuana and other Details: Medical Marijuana Vital Signs and Lab Results Vital Signs Most Recent Vital Signs in EMR: Most Recent Vital Signs Temp Pulse Resp BP Pulse Ox 36.6 C 66 16 131/78 99 01/11/24 08:14 01/11/24 08:14 01/11/24 08:14 01/11/24 08:14 01/11/24 08:14 Point of Care Results Point of Care Results: POC- Test(urine) Negative 01/11/24 08:58 Lab Results Blood Type / Crossmatch: No Data to Display Complete Blood Count: No Data to Display Complete Metabolic Panel: No Data to Display Liver Function Panel: No Data to Display Coagulation Panel: No Data to Display Cardiac Panel: No Data to Display Arterial Blood Gas: No Data to Display Venous Blood Gas: No Data to Display Pancreas Panel: No Data to Display Thyroid Panel: No Data to Display Infectious Disease: No Data to Display Blood Cultures: No Data to Display Toxicology Panel: No Data to Display Panel: No Data to Display Anesthesia Assessment and Plan Anesthesia History Personal History: Other (woke up during conscious sedation for endoscopy.) Family History: No Family History of Anesthesia Complications Exercise Tolerance Exercise Tolerance: Metabolic Equivalents>4 Pertinent Negatives Pertinent Negatives: No Symptoms of GERD, No Major Cardiovascular Symptoms or Complaints and No History of CVA/TIA Cardiac & Pulmonary Exam Cardiac Exam: Normal S1/S2 Heart Sounds Pulmonary Exam: Clear Bilateral Breath Sounds Implantable Cardiac Device Does patient have a Pacemaker or an ICD?: No Airway Exam Known Difficult Airway: No Mallampati Class: 2 Mouth Opening: Normal (> 3cm) Thyromental Distance: Greater than 3 cm Neck Range of Motion: Full ROM Neck Circumference: Normal Teeth Condition: Normal Dentition ASA Classification ASA Score: ASA 2 Emergency Case?: No NPO Status NPO Status: NPO Clears >2 hours, Solids >8 hours Status Status: Negative HCG Anesthesia Plan Resuscitation Status: Full Code Anesthesia Technique: General Anesthesia Airway Planned: Endotracheal Tube Pain Management: Surgeon and patient request nerve block Monitors Used: Standard Monitors
--- NOTE | 2024-01-11 10:18 | W.ANESNERVE ---
Nerve Block Single Injection Procedure Date and Time Date Performed: 01/11/24 Procedure Start: 09:50 Location Where Procedure Performed Procedure Location: Day Surgery Unit Reason Performed: Postoperative Analgesia Requesting Provider: Chintan Servin Timeout Performed Timeout Performed: Yes Monitoring Used ECG, Blood Pressure, SpO2 and See EMR for corresponding vital signs Sterility Sterility: Hand Hygiene, Surgical Cap, Surgical Mask, Sterile Gloves and Chlorhexidine Sedation Given During Procedure Sedation Given (Indicate Dose Given): Versed IV Dose:: 2mg Patient Mental Status Patient Mental Status: Awake Nerve Block 1st Nerve Block: Laterality: Left Block Type: Interscalene Ultrasound Image Saved?: Yes Needle / Catheter Used: 100mm SonoPlex II Local Anesthetic Bolus (Indicate Dose Given): Lidocaine used for local infiltration of skin, Injected in 3-5ml increments after negative blood aspiration, Bupivacaine 0.5% Dose:: 10ml and Exparel Dose:: 10ml Additives (Indicate Dose Given): None Ultrasound: Sterile probe cover and gel used Nerve Stimulator: Supplement to Ultrasound use and No twitch or parasthesia noted < 0.5 mA Paresthesia: None Procedure Tolerated: No Complications Procedure Outcome: Successful Procedure Comment: Pt. very sensitive with any needle movement from skin puncture forward complaining of pressure. No nerve stim repsonse and nerve bundle visualized on screen. Performed By: Garrett Betancourt
[2024-01-11] MEDS: ceFAZolin 2 GM/50 ML BAG IVPB (11:04)
[2024-01-11] MEDS: TRANEXAMIC ACID/SOD. CHL. 1,000 MG/100 ML BAG 600 MG IVPB (11:09)
[2024-01-11] MEDS: Bupivacaine 0.25% Pres-Free W/EPI 30 ML VIAL (11:37)
[2024-01-11] MEDS: EPINEPHrine 10 MG/10 ML ML (12:46)
--- NOTE | 2024-01-11 14:19 | W.ANESPOSTOP ---
Postoperative Evaluation Date, Time and Location Date Performed: 01/11/24 Time Performed: 14:19 Patient Location: Day Surgery Unit Vital Signs Most Recent Imported Vital Signs: Most Recent Vital Signs Temp Pulse Resp BP Pulse Ox 36.6 C 64 16 129/63 96 01/11/24 14:12 01/11/24 14:12 01/11/24 14:12 01/11/24 14:12 01/11/24 14:12 Pain Score Most Recent Pain Score: Most Recent Pain Score Pain Level 0 01/11/24 14:19 Assessment Mental Status: Awake (Alert & Oriented to Patient Baseline) Airway and Respiratory Function: Patent airway with normal (patient baseline) respiratory exam Cardiovascular Function: Hemodynamically Stable Hydration Status: Adequately Hydrated Nausea & Vomiting: No Nausea or Vomiting Pain: Pt. Denies Any Pain Peripheral Nerve Block: Regional nerve block not resolved at time of post operative discharge
== END 2024-01-11 16:10 | disposition home or self-care (01) ==
PROVIDERS: PCP Nurse Practitioner Family; Visit Provider Student in an Organized Health Care Education/Training Program
PROC: (CPT 29805; principal; 2024-01-11 11:00)
DX: M94.212 Chondromalacia, left shoulder (principal); M67.922 Unspecified disorder of synovium and tendon, left upper arm; M75.22 Bicipital tendinitis, left shoulder; S43.432A Superior glenoid labrum lesion of left shoulder, initial encounter; X58.XXXA Exposure to other specified factors, initial encounter
CPT/HCPCS: 29828; 29824; 29823; 29826; 76942; 81025; C9290; J0665; J0690; J1100; J2001; J2250; J2405; J2704

== ENCOUNTER 2024-07-10 11:36 | Outpatient (CLI) | payer OTHER, SELFPAY ==
--- NOTE | 2024-07-10 08:30 | DI.RAD_ITS ---
Exam(s) XR SHOULDER LT COMPLETE 2+V EXAM: XR SHOULDER LT COMPLETE 2+V CLINICAL HISTORY: LEFT SHOULDER PAIN. TECHNIQUE: 2D digital imaging was performed of the left shoulder. Four images were obtained. AP, G rashey, Y-view and axillary views were obtained. COMPARISON: CR XR SHOULDER LT COMPLETE 2+V from 11/27/2020 CR XR SHOULDER LT COMPLETE 2+V from 10/04/2023 FINDINGS: BONES: No acute fracture is present. No bony destructive lesion is seen. JOINTS: No dislocation present. There is moderate narrowing of the glenohumeral joint. There is an o steophyte at the inferior aspect of the humeral head. Postsurgical changes are seen at the acromiocl avicular joint. The soft tissue calcification adjacent to the humeral head is not visualized. SOFT TISSUE: Normal. IMPRESSION: Moderate degenerative changes seen at the glenohumeral joint. DATA REPOSITORY: RADIATION DOSE DELIVERED:
--- NOTE | 2024-07-10 08:30 | DI.RAD_ITS ---
Exam(s) XR CERVICAL SPINE 1V EXAM: XR CERVICAL SPINE 1V CLINICAL HISTORY: LEFT SHOULDER AND NECK PAIN. TECHNIQUE: 2D digital imaging was performed. Two images were obtained. AP and lateral images were obtained. COMPARISON: No exams were available for comparison FINDINGS: There is straightening of the normal cervical lordosis. This may be due to muscle spasm or patient p ositioning. Disc space narrowing and osteophytes are seen at C5-C6. The remaining disc levels are u nremarkable. The odontoid is not well visualized on the AP view. Within the limits of the examinati on, no acute fracture or subluxation is seen. Degenerative changes of the facets are seen at C2-C3. The prevertebral soft tissues are unremarkable. The lung apices are clear. IMPRESSION: Mild degenerative changes seen at C5-C6. DATA REPOSITORY: RADIATION DOSE DELIVERED:
== END 2024-07-10 11:37 | disposition home or self-care (01) ==
LOC: DIORS 11:36
PROVIDERS: PCP Nurse Practitioner Family; Visit Provider Student in an Organized Health Care Education/Training Program
DX: M50.122 Cervical disc disorder at C5-C6 level with radiculopathy (principal); M94.212 Chondromalacia, left shoulder
CPT/HCPCS: 72020; 73030

== ENCOUNTER 2024-07-31 02:50 | Outpatient (CLI) | payer OTHER, SELFPAY ==
--- NOTE | 2024-07-31 11:55 | DI.RAD_ITS ---
Exam(s) RF JOINT INJ. FLUORO GUID RAD EXAM: RF JOINT INJ. FLUORO GUID RAD CLINICAL HISTORY: L SHOULDER PAIN,fluoro guided injection,chondromalacia,m94.212. The Patient has h ad persistent left shoulder pain. Noninvasive measures have been tried. To serve as both diagnostic and therapeutic, an injection under fluoroscopy was recommended. The risks of the procedure were di scussed with their Orthopedic provider and the patient elected to proceed. TECHNIQUE: 2D and realtime digital imaging was performed. CONTRAST MATERIAL: Water soluble contrast was utilized. COMPARISON: No exams were available for comparison FINDINGS: The Patient was greeted in the fluoroscopy room. The correct side was identified and the consent was reviewed with the patient and was signed. The patient was properly positioned on the fluoroscopy ta ble. The left shoulderwas then prepped and draped. The left shoulder injection starting point was i dentified by the bony landmarks and fluoroscopy. The skin and soft tissue in the tract of the inject ion was anesthetized with 1% Bupivacaine. A spinal needle was then inserted into the left shoulder j oint at the level of the glenohumeral joint under fluoroscopic guidance. A small amount of Omnipaque solution was injected to confirm intraarticular placement. Once confirmed, the left shoulder was in jected with 5cc of a solution containing 0.5% Bupivacaiine and 40 mg of Depo-Medrol. A bandaid was p laced on the injection site. The patient tolerated the procedure well and left the department in goo d condition. IMPRESSION: Successful left shoulder injection. RADIATION DOSE DELIVERED: Ka,r=1.28 mGy
[2024-07-31] MEDS: Omnipaque 300 MG/ML 10 ML BTL 5 ML IJ (11:57)
[2024-07-31] MEDS: Bupivacaine 0.5% Pres-Free 10 ML VIAL IJ (11:58)
[2024-07-31] MEDS: methylPREDNISolone ACETATE 40 MG/ML VIAL IM (11:59)
== END 2024-07-31 03:10 ==
PROVIDERS: PCP Nurse Practitioner Family; Visit Provider Student in an Organized Health Care Education/Training Program
DX: M94.212 Chondromalacia, left shoulder (principal)
CPT/HCPCS: 20610; 77002; J0665; J1010

== ENCOUNTER 2024-08-27 17:15 | Outpatient (CLI) | payer SELFPAY ==
[2024-08-27 08:16] LABS: Abs Immature Grans 0.02 10^3/uL (0.0-0.06); Absolute Basophil Count 0.03 10^3/uL (0.0-0.2); Absolute Eosinophil Count 0.31 10^3/uL (0.0-0.7); Absolute Lymphocyte Count 2.81 10^3/uL (1.2-3.4); Absolute Monocyte Count 0.48 10^3/uL (0.1-0.8); Absolute Neutrophil Count 2.52 10^3/uL (1.2-6.7); Basophils % 0.5 %; HCT 41.3 % (36.0-46.0); HGB 13.7 g/dL (11.2-15.7); Immature Grans % 0.3 %; Lymphocytes % 45.5 %; MCH 32.2 pg (27.0-33.0); MCHC 33.2 % (32.0-36.0); MCV 97 fL (80-95); MPV 10.1 fL (8.0-11.0); Monocytes % 7.8 %; Neutrophils % 40.9 %; Platelet Count 230 10^3/uL (130-400); RBC 4.26 10^6/uL (3.93-5.22); RDW 11.8 % (11.7-14.6); RDW-SD 42.3 fL; WBC 6.17 10^3/uL (4.4-10.8)
[2024-08-27 08:55] LABS: ALT 20 U/L (14-59); AST 15 U/L (15-37); Albumin 3.9 g/dL (3.4-5.0); Alkaline Phosphatase 48 U/L (46-116); Anion Gap 6.9 mmol/L (3-11); BUN 11 mg/dL (7-18); Bilirubin, Total 0.43 mg/dL (0.2-1.0); CO2 31.1 mmol/L (21.0-32.0); CREATININE 0.7 mg/dL (0.55-1.02); Calcium 9.5 mg/dL (8.5-10.1); Calculated LDL 218 mg/dL (<100); Chloride 107 mmol/L (98-107); Cholesterol 313 mg/dL (<200); Estimated GFR 106.62 (mL/min/1.73m2); Ferritin 93 ng/mL (8-252); Glucose 90 mg/dL (74-106); HDL Cholesterol 56 mg/dL (40-60); Potassium 3.9 mmol/L (3.5-5.1); Sodium 145 mmol/L (136-145); TSH 0.74 uIU/mL (0.36-3.74); Total Protein 7.1 g/dL (6.4-8.2); Triglyceride 196 mg/dL (<150)
[2024-08-27 09:51] LABS: Iron 94 ug/dL (50-170); Total Iron Binding Capacity 382 ug/dL (250-450); Transferrin Sat 25 % (15-50)
== END 2024-08-27 17:16 | disposition home or self-care (01) ==
LOC: LBO 17:16
PROVIDERS: PCP Nurse Practitioner Family; Visit Provider Nurse Practitioner Family
DX: Z00.00 Encounter for general adult medical examination without abnormal findings (principal); E78.5 Hyperlipidemia, unspecified; E03.9 Hypothyroidism, unspecified; E61.1 Iron deficiency
CPT/HCPCS: 36415; 80053; 80061; 82728; 83540; 83550; 84443; 85025

== ENCOUNTER 2025-07-28 08:59 | Outpatient (REF) | payer SELFPAY | END 2025-07-28 09:00 | disposition home or self-care (01) | LOC: LBN 08:59 | PROVIDERS: PCP Nurse Practitioner Family; Visit Provider Obstetrics & Gynecology | DX: Z12.4 Encounter for screening for malignant neoplasm of cervix (principal) | CPT/HCPCS: 88142; 87624 ==